=== PATIENT | female | born 1960 | race Caucasian/White ===

== ENCOUNTER 2025-02-04 15:18 | Emergency (ER) | payer MEDICARE, OTHER, SELFPAY ==
--- OUTSIDE RECORDS SUMMARY | 2025-02-04 15:21 | XMS_ITS | Encounter Summary ---
Author Organization [facility] Address [address] [place] [address] Phone Care Team Providers Care Interrelated Special Education Teacher Name Role Phone Charles Evans MD Primary Care Provider [phone] Pedro Soler MD Unavailable Martell Craig MD Unavailable [phone] Dick Godoy MD Unavailable [phone] Doug Glaser MD Unavailable [phone] Brii Babin APRN, EVENT CREW TECHNICIAN Unavailable Kacie Boyle APRN, [facility] Unavailable + [phone] Immanuel Coughlin MD Unavailable [phone] Florentin Diaz MD Primary Care Provider [phone] Reason for Visit * Reason Onset Date Comments Medication Refill 08/31/2020 Encounter Details Date Type Department Care Team (Late st Contact Info) Description 08/31/2020 Refill [facility] - Family Medicine [facility] [address] [place] [id number] Charles Evans MD [address] [address] Medication Refill Social History Tobacco Use Types Packs/Day Years Used Date Smoking Tobacco: Former Cigarettes 0.5 4 0 02/06/2002 - 02/06/2006 Smokeless Tobacco: Never Alcohol Use Standard Drinks/Week Comments No 0 (1 standard drink = 0.6 oz pur e alcohol) PHQ-2 Answer Date Recorded PHQ-2 Score 0 05/22/2020 Education Answer Date Recorded What is the highest level of school you have completed or the highest degree you have received? 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 difficile Rule-Out 03/19/2023 03/20/20232022 10:56 PM CDT COVID - 19 06/23/2023 06/23/2023 07/03/2023 12:1 6 AM CDT COVID - 19 11/20/2023 11/17/2023 11/20/2023 8:03 PM CDT Assessment Noted Time PHQ-9 Depression Total Score: 0 05/22/20 20 2:24 PM CDT documented as of this encounter Care Teams Interrelated Special Education Teacher Relationship Specialty Start Date End Date Charles Evans MD [address] [address] PCP - General Family Medicine 06/24/18 01/12/25 Florentin Diaz MD [address] [place] [address] PCP - General Family Medicine 01/13/25 Pedro Sloer MD #[address] [address] Consulting Physician Colon and Rectal Surgery 04/02/22 Martell Craig MD #2 [place] [address] Consulting Physician Neurology 10/21/22 Dick Godoy MD #2 [place] [address] Consulting Physician Gastroenterology 08/15/22 Doug Glaser MD #[address] [phone] Consulting Physician General Surgery 05/07/24 Brii Babin APRN, EVENT CREW TECHNICIAN #2 [place] [address] Nurse Practitioner Advanced Practice Nurse 04/16/24 Kacie Boyle APRN, REGISTERED OCCUPATIONAL THERAPIST [address]2 [place] [address] Nurse Practitioner Advanced Practice Nurse 06/24/24 Immanuel Coughlin MD [address] [place] [address] Consulting Physician General Surgery 07/08/24 documented as of this encounter
--- OUTSIDE RECORDS SUMMARY | 2025-02-04 15:21 | XMS_ITS | Encounter Summary ---
Author Organization [facility] Address [address] [facility] [place] [address] Phone Care Team Providers Care Manager General Name Role Phone Charles Evans MD Primary Care Provider [phone] Pedro Soler MD Unavailable Martell Craig MD Unavailable [phone] Dick Godoy MD Unavailable [phone] Doug Glaser MD Unavailable [phone] Brii Babin APRN, [employer] Unavailable Kacie Boyle APRN, [facility] Unavailable + [phone] Immanuel Coughlin MD Unavailable [phone] Florentin Diaz MD Primary Care Provider [phone] Reason for Visit * Reason Comments Medication Refill Encounter Details Date Type Department Care Team (Late st Contact Info) Description 01/27/2023 Refill [facility] - Family Medicine [facility] #2 [place] [id number] Charles Evans MD #[address] [address] Medication Refill Social History Tobacco Use Types Packs/Day Years Used Date Smoking Tobacco: Former Cigarettes 0.5 4 0 02/06/2002 - 02/06/2006 Smokeless Tobacco: Never Alcohol Use Standard Drinks/Week Comments No 0 (1 standard drink = 0.6 oz pur e alcohol) PHQ-2 Answer Date Recorded Total Score - Questions 1-9 3 02/07 Education Answer Date Recorded What is the highest level of school you have completed or the highest degree you have received? 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 No / Unsure 01/20/2023 9:51 AM CDT documented as of this encounter Miscellaneous Notes * Telephone Encounter - Anne Marie Escamilla RN - 01/27/2023 5:01 PM CDT Last Rx 04/24/22 Medication failed the protocol, provider to review and approve the medication order if appropriate. Requested Prescriptions Pending Prescriptions Disp Refills Calcium 600+D3 600-20 MG-MCG Tablet [Pharmacy Med Name: CALCIUM+D3 600-800MG TABLETS] 90 Tablet 1 Sig: TAKE 1 TABLET BY MOUTH DAILY Minerals Calcium Supplementation Protocol Passed - 01/27/2023 12:23 PM Passed - Visit with relevant provider in past 12 months or upcoming 90 days Recent Visits Date Type Provider Dept 01/20/23 Office Visit Muriel Hays APRN, PRICE LISTER [facility] 11/11/22 Office Visit Charles Evans MD [facility] [place] 10/11/22 Office Visit Ashlee Rangel, VENTURA [facility] [place] 09/11/22 Office Visit Danial Galvan APRN, CNP [facility] 08/16/22 Office Visit Vidhi Corbett APRN, CNP [facility] 03/04/22 Office Visit Muriel Hays APRN, CNP [facility] Showing recent visits within past 365 days and meeting all other requirements Future Appointments No visits were found meeting these conditions. Showing future appointments within next 90 days and meeting all other requirements Passed - Calcium on record in past 12 months CALCIUM Date Value Ref Range Status 08/16/2022 9.5 8.9 - 10.3 mg/dL Final Passed - Vitamin D on record in past 12 months VITAMIN D, 25 HYDROX Date Value Ref Range Status 08/16/2022 35 >=30 ng/mL Final LORazepam (ATIVAN) 0.5 MG Tablet [Pharmacy Med Name: LORAZEPAM 0.5MG TABLETS] 45 Tablet 0 Sig: TAKE 1 TABLET BY MOUTH EVERY 8 HOURS NEEDED FOR ANXIETY Not Delegated - Benzodiazepines Protocol Failed - 01/27/2023 12:23 PM Failed - This refill cannot be delegated Passed - Visit with relevant provider in past 12 months or upcoming 90 days Recent Visits Date Type Provider Dept 01/20/23 Office Visit Muriel Hays APRN, CNP [facility] 11/11/22 Office Visit Charles [facility] MD [facility] 10/11/22 Office Visit Ashlee Rangel PAC [facility] 09/11/22 Office Visit Danial Galvan APRN, CNP [facility] 08/16/22 Office Visit Vidhi Corbett APRN, CNP [facility] 03/04/22 Office Visit Muriel Hays APRN, CNP [facility] [place] Showing recent visits within past 365 days and meeting all other requirements Future Appointments No visits were found meeting these conditions. Showing future appointments within next 90 days and meeting all other requirements documented in this encounter Plan of Treatment Not on file documented as of this encounter Visit Diagnoses Diagnosis Anxiety Anxiety state, unspecified documented in this encounter Additional Health Concerns Infection Onset Date Last Indicated Resolved Time C. difficile Rule-Out 03/19/2023 03/20/202303/20/ 2023 10:56 PM CDT COVID - 19 06/23/2023 06/23/2023 07/03/2023 12:1 6 AM CDT COVID - 19 11/20/2023 11/17/2023 11/20/2023 8:03 PM CDT Assessment Noted Time PHQ-9 Depression Total Score: 3 03/04/20 22 11:00 AM CDT documented as of this encounter Care Teams Manager General Relationship Specialty Start Date End Date Charles Evans MD #[address] [address] PCP - General Family Medicine 06/24/18 01/12/25 Florentin Diaz MD [address] [place] [address] PCP - General Family Medicine 01/13/25 Pedro Soler MD #[address] [address] Consulting Physician Colon and Rectal Surgery 04/02/22 Martell Craig MD #2 [place] [phone] Consulting Physician Neurology 10/21/22 Dick Godoy MD #2 [place] [address] Consulting Physician Gastroenterology 08/15/22 Doug Glaser MD #[address] [phone] Consulting Physician General Surgery 05/07/24 Brii Babin APRN, PRICE LISTER #2 [place] [address] Nurse Practitioner Advanced Practice Nurse 04/16/24 Kacie Boyle APRN, [facility] [address] [place] [address] Nurse Practitioner Advanced Practice Nurse 06/24/24 Immanuel Coughlin MD [address] [address] Consulting Physician General Surgery 07/08/24 documented as of this encounter
--- OUTSIDE RECORDS SUMMARY | 2025-02-04 15:21 | XMS_ITS | Encounter Summary ---
Author Organization [facility] Address [address] [facility] [place] [address] Phone Care Team Providers Care Executive Coach Name Role Phone Charles Evans MD Primary Care Provider [phone] Pedro Soler MD Unavailable Martell Craig MD Unavailable [phone] Dick Godoy MD Unavailable [phone] Doug Glaser MD Unavailable [phone] Brii Babin APRN, [employer] Unavailable Kacie Boyle APRN, [facility] Unavailable + [phone] Immanuel Coughlin MD Unavailable [phone] Florentin Diaz MD Primary Care Provider [phone] Reason for Visit * Reason Comments Medication Refill Encounter Details Date Type Department Care Team (Late st Contact Info) Description 06/15/2020 Refill [facility] - Family Medicine [facility] #2 [place] [phone] Charles Evans MD #[address] [address] Medication Refill Social History Tobacco Use Types [...] Sex Assigned at Female 08/29/2023 3:02 PM I&C TECHNICIAN Legal Sex Female 8:57 PM CDT Gender Identity Female 08/29/2023 3:02 PM I&C TECHNICIAN Sexual Orientation Straight 08/29/2023 3: 02 PM I&C TECHNICIAN 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 No / Unsure 06/15/2020 9:23 AM CDT documented as of this encounter Miscellaneous Notes * Telephone Encounter - Charles Evans MD - 06/16/2020 9:42 AM CDT Prescription pending signature * Telephone Encounter - Janet Mott RN - 06/16/2020 9:18 AM CDT 6 months ago (12/16/2019) LORazepam (ATIVAN) 0.5 MG Tablet TAKE 1 TABLET BY MOUTH EVERY 8 HOURS NEEDED FOR ANXIETY Dispense: 90 Tab? Refills: 0? Start: 12/16/2019? By: Charles Evans MD ? Encounter documented in this encounter Plan of Treatment Not on file documented as of this encounter Visit Diagnoses Not on filedocumented in this encounter Additional Health Concerns Infection Onset Date Last Indicated Resolved Time COVID - 19 08/24/2021 08/24/2021 09/13/2021 12:1 6 AM I&C TECHNICIAN COVID - 19 Confirmed 08/24/2021 08/24/2021 022 12:16 AM I&C TECHNICIAN COVID - 19 Confirmed 02/20/2022 02/20/2022 022 12:16 AM CDT C. difficile Rule-Out 03/19/2023 03/20/20232022 10:56 PM CDT COVID - 19 06/23/2023 06/23/2023 07/03/2023 12:1 6 AM CDT COVID - 19 11/20/2023 11/17/2023 11/20/2023 8:03 PM CDT Assessment Noted Time PHQ-9 Depression Total Score: 0 05/22/20 20 2:24 PM CDT documented as of this encounter Care Teams Executive Coach Relationship Specialty Start Date End Date Charles Evans MD #[address] [address] PCP - General Family Medicine 06/24/18 01/12/25 Florentin Diaz MD [address] [place] [address] PCP - General Family Medicine 01/13/25 Pedro Soler MD #[address] [address] Consulting Physician Colon and Rectal Surgery 04/02/22 Martell Craig MD #2 [place] [phone] Consulting Physician Neurology 10/21/22 Dick Godoy MD #2 [place] [address] Consulting Physician Gastroenterology 08/15/22 Doug Glaser MD #2 [facility] [place] [facility] [address] [place] [address] Consulting Physician General Surgery 05/07/24 Brii Babin APRN, [facility] #2 [place] [address] Nurse Practitioner Advanced Practice Nurse 04/16/24 Kacie Boyle APRN, [facility] #2 [place] [address] Nurse Practitioner Advanced Practice Nurse 06/24/24 Immanuel Coughlin MD [address] [address] Consulting Physician General Surgery 07/08/24 documented as of this encounter
--- OUTSIDE RECORDS SUMMARY | 2025-02-04 15:21 | XMS_ITS | Encounter Summary ---
Author Organization [facility] Healthcare Address [address] [place] [address] Care Team Providers Care Packager Name Role Phone Florentin Diaz MD Primary Care Provider [phone] Josephine Weiss OT Unavailable [facility] Encounter Details Date Type Department Care Team (Late st Contact Info) Description 02/04/2025 Results Follow-Up [facility] Group Primary Care at [address] [place] [address] Florentin Diaz MD [address] [place] [address] US Breast Left Limited Social History Tobacco Use Types Packs/Day Years Used Date Smoking Tobacco: Former Cigarettes 1 4 2 000 - 2003 Passive Smoke Exposure: Past Smokeless Tobacco: Never Comments:smoked when young AUDIT-C Answer Date Recorded Q1: How often do you have a drink containing alcohol? Never 10/20/2024 Q2: How many drinks containi ng alcohol do you have on a typical day when you are drinking? Patient does not drink Q3: How often do you have si x or more drinks on one occasion? Never 10/20/2024 PHQ-2 Answer Date Recorded PHQ-2 Total Score (If total score is 3 or more points, staff should administer the PHQ-9) 0 10/20/2024 Personal Safety Answer Date Recorded Have you ever been in or are you currently in a harmful physical or emotional relationship or is someone making you feel afraid or unsafe? Denies 08/26/2024 Comments No Sex and Gender Information Value Date Recorded Sex Assigned at Not on file Legal Sex Female 6:19 PM DROPHAMMER OPERATOR Gender Identity Female 05/04/2021 12:55 PM CDT Sexual Orientation Straight 05/04/2021 12 :55 PM CDT documented as of this encounter Plan of Treatment Not on file documented as of this encounter Visit Diagnoses Not on filedocumented in this encounter Care Teams Packager Relationship Specialty Start Date End Date Florentin Diaz MD [address] [place] [address] PCP - General Family Medicine 10/20/24 Josephine Weiss OT Occupational Therapist Occupational Therapy 10/25/24 documented as of this encounter
--- OUTSIDE RECORDS SUMMARY | 2025-02-04 15:21 | XMS_ITS | Encounter Summary ---
Author Organization [facility] Address [address] [place] [address] Care Team Providers Care Concrete Block Maker Name Role Phone Florentin Diaz MD Primary Care Provider [phone] Josephine Weiss OT Unavailable Unavailab le Reason for Referral * Diagnostic Imaging (Routine) - Closed Specialty Diagnoses / Procedures Referred By Contac t Referred To Contact Procedures US Breast Left Limited Tyree Wright MD [address] [id number] Phone: tel: Referral ID Status Reason Start Date Expiration Date Visits Re quested Visits Authorized [id number] Closed 02/04/2025 03/06/2026 1 1 * Diagnostic Imaging (Routine) - Closed Specialty Diagnoses / Procedures Referred By Contac t Referred To Contact Procedures Diagnostic Mammogram Tyree Wright MD [address] [id number] Phone: tel: Referral ID Status Reason Start Date Expiration Date Visits Re quested Visits Authorized [id number] Closed 02/04/2025 03/06/2026 1 1 Encounter Details Date Type Department Care Team (Late st Contact Info) Description 02/04/2025 Orders Only [facility] [place] [address] Tyree Wright MD [address] [place] [id number] Social History Tobacco Use Types Packs/Day Years Used Date Smoking Tobacco: Former Cigarettes 1 4 2 000 - 2004 Passive Smoke Exposure: Past Smokeless Tobacco: Never [...] on file Legal Sex Female 6:19 PM FLORIST SUPPLIES SALESPERSON Gender Identity Female 05/04/2021 12:55 PM CDT Sexual Orientation Straight 05/04/2021 12 :55 PM CDT documented as of this encounter Plan of Treatment Not on file documented as of this encounter Procedures Procedure Name Priority Date/Time Associated Diagnosis Comments US BREAST LEFT LIMITED Schedule Routine, Read Routine (OP Routine) 02/03/2025 10:57 AM CDT DIAGNOSTIC MAMMOGRAM Schedule Routine, Read Routine (OP Routine) 02/03/2025 10:50 AM CDT documented in this encounter Results * US Breast Left Limited (02/03/2025 10:57 AM CDT) Anatomical Region Laterality Modality Breast Mammography Historical Provider MD THOMAS MAMMO PROCEDURES Edit ed Result - Final * Diagnostic Mammogram (02/03/2025 10:50 AM CDT) Anatomical Region Laterality Modality Breast Mammography Historical Provider MD THOMAS MAMMO PROCEDURES Edit ed Result - Final documented in this encounter Visit Diagnoses Not on filedocumented in this encounter Care Teams Concrete Block Maker Relationship Specialty Start Date End Date Florentin Diaz MD [address] [place] [address] PCP - General Family Medicine 10/20/24 Josephine Weiss OT Occupational Therapist Occupational Therapy 10/25/24 documented as of this encounter
--- OUTSIDE RECORDS SUMMARY | 2025-02-04 15:21 | XMS_ITS | Data Portability ---
Author Organization [facility] Address [address] [place] [address] Care Team Providers Care Community Service Representative Name Role Phone EDY HEARTPAGEALPESH Primary Care Provider Assessment No assessment recorded. Plan of Treatment Reminders Order Date Submit Date Provider Last Modified By Organization Details Last Modified Time Details Appointments None recorded. Lab None recorded. Referral None recorded. Procedures None recorded. Surgeries None recorded. Imaging MAMMO, screening, digital, bilateral 2016 017 [facility], [address] [place], [address], 7 13:59:13 XR, ribs, unilateral 2016 [facility]17 [facility] [address] [place], [address], 7 16:37:15 Medication Orders Loratadine -D 10 mg-240 mg tablet,ext ended release 24 hr 2016 017 [facility]558, [address], [place], [place], [id number], 7 12:34:19 [facility] mouthwash 2016 017 [facility], [address], [place], [place], [id number], 7 12:37:29 amoxicilli n 500 mg tablet [address] [facility]10370, [address], [place], [place], [id number], 7 11:58:51 citalopram 40 mg tablet 2016 017 [facility], [address], [place], [place], [id number], 7 12:38:58 amoxicilli n 875 mg tablet [address] [facility] #62482, [address], [place], [place], [id number], 7 11:50:27 Cheratussi n AC 10 mg-100 mg/5 mL oral liquid 2016 017 [facility] #57858, [address], [place], [place], [id number], 7 12:18:07 albuterol sulfate HFA 90 mcg/actuat ion aerosol inhaler 2016 017 [facility] #58586, [address], [place], [place], [id number], 7 12:52:28 naproxen 500 mg tablet 2016 017 [facility], [address], [place], [place], [id number], 7 12:26:58 Cheratussi n AC 10 mg-100 mg/5 mL oral liquid 2016 017 [facility], [address], [place], [place], [id number], 7 12:18:07 Patient TargetsNo targets recorded. Patient Instructions Encounter Date Encounter Id Patient Instructions Last Modified By Organization Details Last Modified Time 01/22/2017 [id number] broken rib: care instructions jdeyto Not available 01/22/2017 14:52:08 02/28/2017 [id number] Increase fluid, steam inhalation. Return to clinic if problem persists or worsen keep f/u nsuthan Not available 02/28/2017 12:51:52 03/17/2017 [id number] learning about healthy weight nsuthan Not available 03/17/2017 12:17:16 continue meds as prescribed healthy diet and exercise f/u in 3 month nsuthan Not available 03/17/2017 12:26:47 07/02/2017 [id number] eating healthy foods: care instructions nsuthan Not available 07/02/2017 12:28:06 continue meds as prescribed healthy diet and exercise f/u in 2 month nsuthan Not available 07/02/2017 13:26:20 07/21/2017 [id number] keep f/u nsuthan Not available 07/21 12:27:53 Reason for Referral None Reported. Results Created Date Observation Date Name Description Value Unit Range Abnormal Flag Note LastModifiedBy Organization Detail LastModifiedTime 01/23/20 17 01/22/2017 XR, ribs, unila teral No observ ation record ed. [email or web address] [address] [place], [address], 01/23/2017 14:41:17 04/15/20 17 04/15/2017 MAMMO , scree gretchen, digit al, bilat eral No observ ation record ed. nsuthan [address] [place], [address], 04/15/2017 14:51:48 08/13/20 17 08/13/2017 gastr ic empty ing study (PROC ) No observ ation record ed. nsuthan Not Available 2016 16:34:50 06/16/20 18 06/16/2018 US, abdom en No observ ation record ed. nsuthan Not Available 2017 10:50:15 Result Notes None recorded. Problems Name Problem SNOMED Code Status Onset Date Resolution Date Notes Provider Name and Address Organization Details Recorded Time Mixed anxiety and depressive disorder 924580503 Active 2016 Jasvir Heart MD Attn: Cherelle mckeon,[address] [facility], [place], [address], [facility] 7 10:24:11 Chronic constipation 509112684 Active 2016 seeing GI-Dr.K kaylee Heart MD Attn: Cherelle mckeon,[address] [facility], [place], [address], [facility] 7 10:20:58 Elevated blood-pressur e reading without diagnosis of hypertension 057755850 Active 2016 Jasvir Heart MD Attn: Cherelle mckeon,[address] [facility], [place], [address], [facility] 7 12:27:36 Problem Notes None recorded. Procedures Surgical History Date Name Laterality Status Provider Name and Address Organization Details Recorded Time 08/08/20 17 EGD/Endoscopy completed Anne Marie Ugarte RN [facility] 08/14/2017 16:47:56 04/15/20 17 Most Recent Mammogram completed Jasvir Heart MD Attn: Accounting,[address] [facility], [place], [address], [facility] 04/15/2017 14:51:41 04/11/20 17 Colonoscopy completed Jasvir Heart MD Attn: Accounting,[address] [facility], [place], [address], [facility] 04/11/2017 10:47:51 10/09/19 16 Total hysterectomy completed Carolina Rogel [facility] 10/23/2016 10:16:31 09/08/19 15 Joint Replacement completed [facility] - [facility] 10/23 10:15:35 09/08/18 99 Tubal Ligation completed [facility] 10/23/19 17 10:16:15 [facility] 10/23[facility]2016 10:15:59 [facility] 10:16:54 Other completed Carolina Rogel [place] - [facility] 017 10:17:49 Imaging Results None recorded. Procedure Notes None recorded. Medical Equipment None Reported. Allergies Allergen ID Allergen Name Allergen Category Reaction Reaction Severity Criticality Documentation Date Start Date Code Code System Note Provider Name and Address Organization Details Recorded Time 47724 neomycin medicatio n rash Not available Not available 10/23/2016 7299 [employer] Carolina cheng, [place] - [facility] 7 10:06:57 Medications Name Sig Start Date Stop Date Status Note LastModified by Organization Details LastModified Time citalopra m 40 mg tablet TAKE 1 TABLET BY MOUTH EVERY DAY active Not Available Not Available No t Available Lidocaine Viscous 2 % mucosal solution active Not Available Not Available Not Available ondansetr on HCl 8 mg tablet Take 1 tablet every 8 hours by oral route as needed. active Not Available Not Available No t Available famotidin e 40 mg tablet Take 1 tablet twice a day by oral route. 07/02 completed Not Available Not Available Not Available Zithromax Z-Yonas 250 mg tablet TAKE 2 TABLETS (500 MG) BY ORAL ROUTE ONCE DAILY FOR 1 DAY THEN 1 TABLET (250 MG) BY ORAL ROUTE ONCE DAILY FOR 4 DAYS 07/21 completed Not Available Not Available Not Available Motrin IB 200 mg tablet Take 3 tablets every 6 hours by oral route. 02/28 completed hold while on naproxen BID Not Available Not Available Not Available omeprazol e 40 mg capsule,d elayed release GI active Not Available Not Available Not Available amoxicill in 500 mg tablet Take 1 tablet 3 times a day by oral route for 7 days. 07/21 completed Not Available Not Available Not Available amoxicill in 875 mg tablet Take 1 tablet every 12 hours by oral route for 7 days. 03/17 completed Not Available Not Available Not Available citalopra m 20 mg tablet TAKE 1 TABLET BY MOUTH DAILY active Not Available Not Available No t Available DOK 100 mg capsule 07/02 completed Not Available Not Available Not Available ranitidin e 150 mg tablet GI active Not Available Not Available Not Available omeprazol e 20 mg capsule,d elayed release 07/02 completed Not Available Not Available Not Available polyethyl jostin glycol 3350 17 gram/dose oral powder 03/17 completed Not Available Not Available Not Available naproxen 500 mg tablet Take 1 tablet twice a day by oral route. 03/17 completed Not Available Not Available Not Available Ventolin HFA 90 mcg/actua tion aerosol inhaler Inhale 2 puffs 3 times a day by inhalati on route as needed. active Not Available Not Available No t Available OraMagicR x mouthwash Benadryl / Maalox / Xylocain e at equal proporti ons -Take 10ml bid by mucous route. 2016 active Not Available Not Available Not Avai lable Loratadin e-D 10 mg-240 mg tablet,ex tended release 24 hr Take 1 tablet every day by oral route for 10 days. 2016 active Not Available Not Available Not Avai lable bupropion HCl XL 300 mg 24 hr tablet, extended release TAKE 1 TABLET BY MOUTH EVERY DAY active Not Available Not Available No t Available Linzess 145 mcg capsule Take 1 capsule every day by oral route. 01/13 completed Not Available Not Available Not Available Linzess 290 mcg capsule TAKE 1 CAPSULE BY MOUTH EVERY DAY 07/02 completed Not Available Not Available Not Available Virtussin AC 10 mg-100 mg/5 mL oral liquid Take 10 mL twice a day by oral route as needed for 5 days. 03/17 completed Not Available Not Available Not Available Flonase Allergy Relief 50 mcg/actua tion nasal spray,[employer] [place] 1 spray every day by intranas al route. active Not Available Not Available No t Available Trulance 3 mg tablet Take 1 tablet every day by oral route. active GI Not Available Not Available No t Available Vitals Date Recorded Body height Body weight Body mass index (BMI) Heart rate Respiratory rate Body temperature Oxygen saturation Oxygen saturation in Arterial blood by Pulse oximetry Systolic blood pressure Diastolic blood pressure Provider Name and Address Organization Details Last Updated DateTime 7 157.48 cm 78215.0 8 g 26.9 kg/m2 76 /min 12 /min 98.4 [degF] 96 % 96 % 142 mm[Hg] 80 mm[Hg] Lore Jenkins MA [place] - [facility] 7 14:26:55 Date Recorded Body height Body mass index (BMI) Body weight Heart rate Respiratory rate Body temperature Oxygen saturation Oxygen saturation in Arterial blood by Pulse oximetry Systolic blood pressure Diastolic blood pressure Provider Name and Address Organization Details Last Updated DateTime 7 157.48 cm 27.5 kg/m2 93882.5 7 g 75 /min 12 /min 98.3 [degF] 98 % 98 % 136 mm[Hg] 88 mm[Hg] Nicolle Esa TD [facility] 7 12:29:54 Date Recorded Body height Body mass index (BMI) Body weight Heart rate Respiratory rate Body temperature Oxygen saturation Oxygen saturation in Arterial blood by Pulse oximetry Systolic blood pressure Diastolic blood pressure Provider Name and Address Organization Details Last Updated DateTime 7 157.48 cm 27.8 kg/m2 82838.6 8 g 76 /min 12 /min 98 [degF] 97 % 97 % 130 mm[Hg] 88 mm[Hg] [facility] 7 11:49:55 Date Recorded Body height Body mass index (BMI) Body weight Heart rate Respiratory rate Body temperature Oxygen saturation Oxygen saturation in Arterial blood by Pulse oximetry Systolic blood pressure Diastolic blood pressure Provider Name and Address Organization Details Last Updated DateTime 7 157.48 cm 29 kg/m2 14407.0 3 g 73 /min 12 /min 98.1 [degF] 98 % 98 % 144 mm[Hg] 86 mm[Hg] [facility] 7 12:05:18 Date Recorded Body height Body mass index (BMI) Body weight Heart rate Respiratory rate Body temperature Oxygen saturation Oxygen saturation in Arterial blood by Pulse oximetry Systolic blood pressure Diastolic blood pressure Provider Name and Address Organization Details Last Updated DateTime 7 157.48 cm 28.5 kg/m2 26482.6 9 g 90 /min 12 /min 98.8 [degF] 99 % 99 % 142 mm[Hg] 92 mm[Hg] [facility] 7 12:00:59 Social History Question Answer Notes LastModified by Organizat ion Details LastModified Time Tobacco Smoking Status Former Smoker Quit- [facility] 10/23/2016 10:13:27 What Is Your Level Of Caffeine Consumption? Moderate Information not available 10/23/2016 How Much Tobacco Do You Chew? None Information not available 10/23/2016 What Type Of Diet Are You Following? SPECIFIC Information not available 03/17/2017 Which Illicit Or Recreational Drugs Have You Used? Denies Information not available 10/23/2016 Marital Status Informatio n not available 10/23/2016 What Was The Date Of Your Most Recent Tobacco Screening? 07/21/2017 Information not available 04/01/2019 Performs Monthly Self-breast Exam? Yes Information not available 10/23/2016 At What Age Did You Start Smoking Tobacco? 42 Information not available 10/23/2016 General Stress Level Low Information not available 10/23/2016 How Many Years Have You Smoked Tobacco? 3 Information not available 10/23/2016 Sex: Unknown Functional Status Question Answer Note LastModified by Organizat ion Details LastModified Time What is your level of alcohol consumption? 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 Occasional Walking Information not available 03/17/2017 Mental Status None recorded. Family History Relationship Description Onset Age of this Age Resolved Age Notes LastModified by Organization Details LastModified Time Father Asthma Not available 10:11:57 Sister Asthma Not available 10:11:57 Sister Depressive disorder Not available 2016 10:12:05 Mother Diabetes mellitus Not available 2016 10:12:12 Mother Hypertensive disorder Not available 2016 10:12:21 Mother Malignant neoplasm of lung Not available 2016 10:12:42 Mother Chronic obstructive pulmonary disease Not available 2016 10:13:04 Medical History Condition Response Depression Y Acid Reflux (GERD) Y Gynecological History Statement/Question Response Most Recent Mammogram 04/15/2017 Obstetrics History GPAL:G 0 P 0 0 0 0 Immunizations Vaccine Type Date Status Note Provider Nam e and Address Organization Details Recorded Time Influenza, split virus, quadrivalent, preservative 7 completed Not Available [facility] 09/25/2019 02:34:24 Tdap 3 completed [place] Rogel [place], [place] - [facility] 10/23/2016 10:11:03 Past Encounters Encounter ID Performer Location Encounter Start Date Encounter Closed Date Diagnosis/Indication Diagnosis SNOMED-CT Code Diagnosis ICD10 Code Diagnosis Note [id number] [facility] [address] [place] [address] 10/23/2016 09:45:03 10/23/2016 17:04:51 Mixed anxiety and depressive disorder 580119523 F41.8 stable on Celexa and Wellbutrin Chronic constipation 236 358419 K59.00 pt tried several meds without much improvemen tTrial of Linzess 145 mg daily -sample given Abdominal pain 74867529 R10.9 pt went to ER and xray few wks ago and pt was told she has constipati onpt had colonoscop y 07/23 -polyp removed pt never had CT abdomen Adult heal th examination 587300951 Z00.01 include more vegetables and fruits in diet [id number] [facility] [address] [place] [address] 01/13/2017 09:58:25 01/13/2017 13:19:39 Mixed anxiety and depressive disorder 003397183 F41.8 stable on Celexa and Wellbutrin Acute sinusitis 98127258 J01.90 Increase fluid continue flonase nasal spray Chronic constipation 236 004399 K59.00 pt is seeing GI repeat colonoscop y is pending [id number] [facility] [address] [place] [address] 01/22/2017 14:18:47 01/22/2017 15:19:49 Rib pain 029925883 R07.81 no overt fracture palpable, lung sounds are clear. Get x-ray of ribs and change motrin to scheduled naproxen. use ice instead of heat as she has mild swelling still at area of injury. Further recs when xray results available. Cough 11660619 R05 with recent URI, completed abx on Friday. Take cheratussi n when not driving to minimize cough and help w/ sleep due to rib pain [id number] MD Mahsa Gonzalez (Adult Med) [address] [place] [address] 02/28/2017 12:09:09 02/28/2017 15:29:06 Acute bronchitis 71220012 J20.9 [id number] MD Mahsa Gonzalez (Adult Med) [address] [place] [address] 03/17/2017 11:42:36 03/17/2017 13:49:16 Mixed anxiety and depressive disorder 870085436 F41.8 stable on Celexa and Wellbutrin Chronic constipation 236 567998 K59.00 pt is seeing GI Overweight 936010951 E66 .3 Screening mammography 24 453927 Z12.31 pt to see Gang [employer] [id number] MD Mahsa Gonzalez (Adult Med) [address] [place] [address] 07/02/2017 11:57:12 07/03/2017 18:10:56 Administration of influenza vaccine 02351090 Z23 Mixed anxi ety and depressive disorder 721452409 F41.8 fair controlInc rease Celexa 40 mg dailyconti sophia Wellbutrin Elevated blood-pressure reading without diagnosis of hypertension 450873901 R03.0 low salt diet / exercisewi ll reassess Acute sinusitis 01555725 J01.90 increase fluid [id number] MD Mahsa Gonzalez (Adult Med) [address] [place] [address] 07/21/2017 11:38:05 07/22/2017 16:09:08 Upper respiratory infection 13988411 J06.9 Elevated blood-pressure reading without diagnosis of hypertension 673052719 R03.0 low salt diet / exercisewi ll reassess Health Concerns Section Related Observation LastModified by Organization Detai ls LastModified Time None Recorded Concern Status LastModified by Organization Details LastModified Time None Recorded Advance Directives Directive None Recorded Payers Encounter Date Sequence Insurance Name Policy Number Policy Lawson Covered Member ID Lawson Member ID Guarantor Name 01/22/2017 1 [facility] (MEDICAID HMO) [id number] Mallory Alda [id number] Mallory Lizama 02/28/2017 1 [facility] (MEDICAID HMO) [id number] Mallory Alda [id number] Mallory Alda 03/17/2017 1 [facility] (MEDICAID HMO) [id number] Mallory Alda [id number] Mallory Alda 07/02/2017 1 [facility] (MEDICAID HMO) [id number] Mallory Alda [id number] Mallory Alda 07/21/2017 1 [facility] (MEDICAID HMO) [id number] Mallory Alda [id number] Mallory Alda Notes Date Note Type Note Provider Name and Address Organization Details Recorded Time 7 text/htm l right sided rib pain started Friday, was leaning on tub on right side, slipped and lost her footing, suddenly had all of her weight on edge of tub, sharp pain to anterior & lateral rib underneath right breast. Motrin & heat not really helping. Painful to take deep breaths. No problems moving her right arm, but pain w/ reaching, twisting, turning torso.Not sleeping well due to pain w/ movement or laying on that side. Denies any difficulty breathing except for pain, no shortness of breath, no hemoptysis. Getting over URI and still having drainage and cough which is very painful. Fransisca Juares PA-C Attn: Accounting,[address] [place], [address], [facility] 01/22/2017 14:55:00 7 text/htm l Upper Respiratory SymptomsReported bypatient.Location:head; chest Quality:congested;dry cough Duration:symptoms lasting over 2 weeks Context:non-smoker Associated Symptoms:no sputum production; no fever;wheezing;sore throat(better) Jasvir Heart MD Attn: Accounting,[address] [place], [address], [facility] 02/28/2017 12:57:49 7 text/htm l Anxiety/DepressionReported bypatient.Quality:symptoms improved Severity:denies suicidal ideations; does not interfere with activities of daily living Duration:stablizing Onset/Timing:gradual Context:no major life stressors Modifying Factors:medications as directed Associated Symptoms:denies homicidal ideations; mood good; no crying spells; sleeping wellConstipationReported bypatient.Quality:improving; small amount Duration:present 5 or more years Contextno history of IBS;history of chronic idiopathic constipation;history of colonoscopy(07/23) Alleviating Factors:fiber supplement; miralax; stool softener; high fiber diet Associated Symptoms:abdominal pain;nausea;crampingNotes:pt is seeing GI . Jasvir Heart MD Attn: [facility],[address] [place] [address], [address], [facility] 03/17/2017 12:27:27 7 text/htm l Anxiety/DepressionReported bypatient.Quality:symptoms improved (fair control with med) Severity:denies suicidal ideations Onset/Timing:gradual Context:no major life stressors Modifying Factors:medications as directed Associated Symptoms:denies homicidal ideations; no crying spells; sleeping well;depressionSinusitis/All ergyReported bypatient.Location:maxillary Associated Symptoms:headache cheek Onset/Timing:gradual onset; progressively worse over last 3days Quality:hoarseness;congested Severity:moderate Risk Factors:no history of smoking;increased stress Jasvir Heart MD Attn: [facility],[address] [place] [address], [address], [facility] 07/02/2017 13:27:22 7 text/htm l Sinusitis/AllergyReported bypatient.Location:frontal Associated Symptoms:headache forehead;sore throat Onset/Timing:gradual onset; progressively worse over last 2weeks Quality:hoarseness;congested Severity:moderate Context:recent upper respiratory infection Risk Factors:no history of smoking;increased stress Jasvir Heart MD Attn: [facility],[address] [place] [address], [address], [facility] 07/21/2017 15:00:33 OBGyn Episode No OBEpisode recorded.
--- OUTSIDE RECORDS SUMMARY | 2025-02-04 15:21 | XMS_ITS | Clinical Summary ---
Author Organization [facility] Address [address] [place] [address] Care Team Providers Care Felt Dyeing Machine Tender Name Role Phone Florentin Diaz MD Primary Care Provider [phone] Josephine Weiss OT Unavailable Unavailab le Allergies Active Allergy Reactions Criticality Noted Date Comments Neomycin Hives,Rash High 11/12/2018 Blisters Tea Tree Oil Other (See comments) Low 04/09/2019 Blisters Medications buPROPion XL (WELLBUTRIN XL) 300 mg 24 hr tabletIndications: Anxiety with Depression Take 1 tablet (300 mg total) by mouth every morning RESTART on 09/09 when able to take pills whole 5 Active citalopram (CeleXA) 40 mg tabletIndications: Generalized Anxiety Disorder Take 1 tablet (40 mg total) by mouth every morning Crush pills until 09/09 when able to take pills whole 4 Active SUMAtriptan (IMITREX) 25 mg tabletIndications: Migraine Take 1 tablet (25 mg total) by mouth once as needed for migraine Crush pills until 09/09 when able to take pills whole May repeat dose once in 2 hours if no relief. Do not exceed 2 doses in 24 hours. 4 Active topiramate (TOPAMAX) 25 mg capsuleIndications :Migraine Prevention Take 1 capsule (25 mg total) by mouth 2 (two) times a day Open capsule and take in applesauce until 09/09 when able to take pills whole 4 Active valACYclovir (VALTREX) 500 mg tabletIndications: herpes 2 Take 1 tablet (500 mg total) by mouth every morning Crush pills until 09/09 when able to take pills whole 4 Active ondansetron ODT (ZOFRAN-ODT) 4 mg disintegrating tabletIndications: Prevention of Post-Operative Nausea and Vomiting Take 1 tablet (4 mg total) by mouth every 8 (eight) hours as needed for nausea or vomiting 20 tablet 2 4 Active alendronate (FOSAMAX) 70 mg tabletIndications: Age-related osteoporosis without current pathological fracture Take 1 tablet (70 mg total) by mouth every 7 days Take in the morning with a full glass of water, on an empty stomach, and do not take anything else by mouth or lie down for the next 30 min. 12 tablet 3 5 026 Active Active Problems Problem Noted Date Diagnosed Date Osteoporosis 11/26/2024 Migraine with aura and witho ut status migrainosus, not intractable 10/20/2024 Assessment & Plan (10/20/2024 10:19 PM MOTORS ASSEMBLER): Stable, well controlled; no major issues Continue sumatriptan 25 mg p.r.n., topiramate 25 mg b.i.d. Hiatal hernia 08/26/2024 Vitreous hemorrhage of right eye 08/22/2024 Hiatal hernia with GERD 08/11/2024 Primary osteoarthritis of fi rst carpometacarpal joint of left hand 07/04/2024 De Quervain's tenosynovitis 07/04/2024 Gastric polyp 06/04/2024 COVID-19 08/27/2021 s/p C3-7 ACDF on 02/01/[address] Barbosa 021 Body mass index (BMI) of 25.0-25.9 in adult 11/07 Overview (12/08/2020): Last Assessment & Plan: Condition: stable Educated patient on normal BMI range of 18.5 to 24.9 Advised to monitor nutrition to not exceed caloric needs, or as indicated by PCP in order to maintain a healthy weight and BMI. Advised to engage in aerobic physical activity, if indicated to be safe by PCP, to assist with maintaining a healthy weight and BMI. Advised to follow up with PCP to address nutrition as needed to assist with reaching or maintaining a healthy weight and BMI. Follow up in: one year Examination 12/03/2019 Overview (12/08/2020): Patient consented to telehealth exam. Last Assessment & Plan: Condition: stable Follow up in: one year It was very nice to meet you today. I also recommend washing your hands frequently to prevent the spread of disease such as, but not limited to Influenza. Remember to wash your hands with soap and water and scrub your hands for at least 20 seconds at a time. A way to do this is by singing your A, B, Cs one time or the Happy Birthday song two times which is approximately 20 seconds. Former smoker, stopped smoking many years ago Overview (12/08/2020): Last Assessment & Plan: No longer smokes Memory difficulty 12/03/2019 Overview (12/08/2020): Patient reports new memory problems and that PCP is aware. Is supposed to follow up with neurology, but the appointment keeps getting pushed back. Last Assessment & Plan: Condition: new. Follow up with neurology Urge incontinence of urine 12/03/2019 Overview (12/08/2020): Last Assessment & Plan: Condition: stable Follow up as directed by your primary care provider or specialist LSC (lichen simplex chronicus) 04/10/2019 Neoplasm of uncertain behavior of skin 9 Dermatitis, unspecified 04/10/2019 Overview (12/08/2020): Last Assessment & Plan: Condition: Using a steroid cream. Reports that it sometimes helps, Follow up in: I recommend calling the freight rate specialist as we discussed, to set up an appointment. 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 Overview (12/08/2020): Followed by Royce Castelan MD-Plastic surgery Last Assessment & Plan: Follow up as directed by your primary care provider or specialist Elevated blood-pressure read ing without diagnosis of hypertension 07/02/2017 Chronic constipation 10/29/2016 Overview (12/08/2020): Last Assessment & Plan: Condition: stable Follow up in: three months DNS (deviated nasal septum) 04/11/2016 Overview (12/08/2020): Last Assessment & Plan: Condition: stable Follow up as directed by your primary care provider or specialist Gastroesophageal reflux disease 04/11/2016 Overview (12/08/2020): Last Assessment & Plan: Condition: stable Reviewed use of antacid medication and/or diet modifications of decreasing caffeine, spicy foods, chocolate, and avoiding alcohol, tobacco, NSAIDs, and reducing citrus acids. Follow up in: three months Assessment & Plan (10/20/2024 10:19 PM MOTORS ASSEMBLER): Stable, well controlled; status post fundoplication; improvement in symptoms and doing much better Continue ondansetron p.r.n. for nausea to reduce risk of vomiting Headache 04/11/2016 Hyperfunctional dysphonia 04/11/2016 Hypertrophy of inferior nasal turbinate 04/11/20 16 Malocclusion due to mouth breathing 04/11/2016 Pachyderma of larynx 04/11/2016 PNAR (perennial non-allergic rhinitis) 6 Referred otalgia 04/11/2016 Tinnitus 04/11/2016 Colon polyps 08/07/2015 History of colon polyps 08/07/2015 Overview (12/08/2020): Last Assessment & Plan: Condition: Most recent colonoscopy shows no colon polyps. Recommend to follow up with regular colon cancer screenings as recommended by your PCP or specialist. Internal hemorrhoids 08/07/2015 Ovarian cyst 08/02/2015 Anxiety 07/19/2015 Assessment & Plan (10/20/2024 10:19 PM MOTORS ASSEMBLER): Well controlled; no significant anxiety at this time; good control with current medications and no significant side effects Continue citalopram 40 mg daily, bupropion 300 mg daily Depression 07/19/2015 Hypothyroidism 07/19/2015 Assessment & Plan (10/20/2024 10:18 PM MOTORS ASSEMBLER): Stable, well controlled; no major changes to energy levels or activity Will continue to monitor with regular thyroid checks Moderate episode of recurrent major depressive d isorder 07/19/2015 Overview (12/08/2020): Last Assessment & Plan: Condition: improving Last mental health visit Patient reports that she was scheduled for a visit last week, but had to reschedule due to coronavirus. Advised to keep follow up appointment. Take medications as ordered by Provider; notify Provider if you cannot take medications as ordered or are having difficulties or side-effects from medications (do not stop medications without notifying Provider). If symptoms worsen or do not improve/stabilize, notify health care provider right away. If thoughts of harming self or others notify health care provider immediately &/or seek urgent/emergent care including calling Suicide Hotline ( ) or 085. Follow up in as directed with Psychologist, Counselor and PCP RA (rheumatoid arthritis) 07/19/2015 Overview (12/08/2020): Patient reports that she has no symptoms at this time Last Assessment & Plan: Follow up as directed by your primary care provider or specialist Encounters Date Type Department Care Team Description 02/04/2025 Telephone [facility] [address] [address] Florentin Diaz MD Symptom Based Call 02/04/2025 Results Follow-Up [facility] Primary Care at [address] [place] [address] Florentin Diaz MD US Breast Left Limited 02/04/2025 Orders Only [facility] [address] [address] Tyree Wright MD 01/18/2025 Telephone [facility] [address] [address] Florentin Diaz MD Additional Services Or Orders 01/03/2025 Telephone [facility] [address] [place] [phone] Randolph Victoria PA 12/10/2024 Orders Only [facility] [address] [place] [phone] Randolph Victoria PA Primary osteoarthritis of first carpometacarpal joint of left hand (Primary Dx); Orthopedic aftercare 12/09/2024 1:15 PM CDT - 12/09/2024 11:59 PM CDT Hospital Encounter [facility] [address] [place] [address] [address], [place] [phone] Discharge Disposition: Discharge to home or self care 12/09/2024 1:00 PM CDT Office Visit [facility] [address] [place] [address] [address] [place] [phone] Randolph Victoria PA Primary osteoarthritis of first carpometacarpal joint of left hand (Primary Dx); Orthopedic aftercare 11/26/2024 Results Follow-Up [facility] Primary Care at [address] [place] [address] Danay Alvarado NP Dexa Axial Skeleton Bone Density 1 or 2 Site 11/18/2024 2:15 PM CDT - 11/18/2024 11:59 PM CDT Hospital Encounter [facility] [address] [place] [address] Osteoporosis screening; Post-menopause Discharge Disposition: Discharge to home or self care 11/12/2024 1:45 PM MOTORS ASSEMBLER Therapy [facility] Occupational Therapy [address] [place] [address] Josephine Weiss OT Primary osteoarthritis of first carpometacarpal joint of left hand (Primary Dx); De Quervain's tenosynovitis; 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 from Last 3 Months Immunizations Immunization Administration Dates Next Due Influenza, Quadrivalent, Split, Intramuscular Influenza, Quadrivalent, Spl it, Preservative Free, Intramuscular 08/07/2015,08/07/2015 Influenza, Trivalent, IM (MDV) 05/25/2013 Pneumococcal Polysaccharide PPV23 08/08/2008 Td, adsorbed 10/29/2022 Tdap 05/20/2013 Surgical History Surgery Date Site/Laterality Comments NASAL SEPTUM SURGERY WRIST SURGERY X 4 ECTOPIC X 2 HYSTERECTOMY 09/08/2015 - 09/07/2016 N/A TONSILLECTOMY FRACTURE SURGERY CHOLECYSTECTOMY 06/08/2024 - 07/08/2024 N/A THUMB SURGERY 07/20/2024 Left Left thumb arthroplasty, interposition, intercarpal, carpometacarpal joint and dequervains disease release ESOPHAGOGASTRODUODENOSCOPY 06/04/2024 CERVICAL FUSION 02/01/2021 C3-4, C4-5, C5-6, C6-7 ANTERIOR CERVICAL DISCECTOMY FUSION TUBAL LIGATION LAPAROSCOPIC STEPHANIE FUNDOPLICATION 2023 - 09/07/2024 N/A Medical History Medical History Date Comments GERD (gastroesophageal reflux disease) Depression Anxiety Arthritis PONV (postoperative nausea and vomiting) Headache Motion sickness Family History Medical History Relation Name Comments Asthma Father Hypertension Father COPD Mother LS Cancer Mother LS Diabetes Mother LS Hypertension Mother LS Anesthesia problems Neg Hx Relation Name Status Comments Father Alive Mother LS Social History Tobacco Use Types Packs/Day Years Used Date Smoking Tobacco: Former Cigarettes 1 4 2 000 - 2004 Passive Smoke Exposure: Past Smokeless Tobacco: Never Tobacco Cessation:Counseling Given: Not Answered Comments:smoked when young AUDIT-C Answer Date Recorded [...] on file Legal Sex Female 6:19 PM MOTORS ASSEMBLER Gender Identity Female 05/04/2021 12:55 PM CDT Sexual Orientation Straight 05/04/2021 12 :55 PM CDT Obstetrics History Last Filed Vital Signs Vital Sign Reading Time Taken Comments Blood Pressure 124/77 12/09/2024 1:02 PM CDT Pulse 71 12/09/2024 1:02 PM CDT Temperature 36.7 C (98 F) 10/20/2024 10:52 AM MOTORS ASSEMBLER Respiratory Rate 18 10/20/2024 10:52 AM MOTORS ASSEMBLER Oxygen Saturation 99% 10/20/2024 10:52 AM MOTORS ASSEMBLER Inhaled Oxygen Concentration - - Weight 62.6 kg (138 lb) 12/09/2024 1:02 PM CDT Height 157.5 cm (5' 2) 12/09/2024 1:02 PM CDT Body Mass Index 25.24 12/09/2024 1:02 PM CDT Plan of Treatment Health Maintenance Due Date Last Done Comments Colon Cancer Screening-Colonoscopy 1960 Zoster Vaccine (1 of 2) 2009 Pneumococcal vaccine 65+ (2 of 2 - PCV) 08/08/2009 08/08/2008 Well Visit 65+ 2024 Influenza Vaccine (Season Ended) 2025 07/02/2017, 08/07/2015, 08/07/2015, Additional history exists Depression Screening 10/20/2025 10/20/2024 Fall Risk Assessment 10/20/2025 10/20/2024, 08/27/20 Breast Cancer Screening-Mammogram 02/03/2026 02/03/2025, 04/25/2022, 04/25/2022, Additional history exists Osteoporosis Screening-Bone Density Scan 11/18/2026 11/18/2024 DTaP/Tdap/Td Vaccine (3 - Td or Tdap) 10/29/2032 10/29/2022, 05/20/2013 Hepatitis B Screening Completed 10/20/2024 Hepatitis C Screening Completed 10/20/2024 Medical Devices Implanted Type Area Securities Sales Associate Device Identifier Shelf Expiration Date Model / Serial / Lot [place] Spine [id number] G2 Cage Spinal Buxton 7 D L12mm X W14mm X H7mm Sterile Latex Free Cervical Interbody System - [id number] Implanted:Qty: 1 on 02/01/2021 by Herminio Barbosa MD at [facility] N/A: Spine Cervical Virginie Spine [id number] 02/20/2025 [id number] / / [id number] Medtronic Spinal Graft [id number] Putty Filler 1cc Bone Void Demineralized Bone Matrix - [id number] - [id number] Implanted:Qty: 1 on 02/01/2021 by Herminio Barbosa MD at [facility] N/A: Spine Cervical Medtronic Inc 12/25/2023 [id number] / [id number] / Virginie Spine [id number] G2 Cage Spinal Buxton 7 D L12mm X W14mm X H6mm Sterile Latex Free Cervical Interbody System - [id number] Implanted:Qty: 1 on 02/01/2021 by Herminio Barbosa MD at [facility] N/A: Spine Cervical Liv[place] Spine 04/18/202507/2025 [id number] / / [id number] Virginie Spine [id number] G2 Cage Spinal Buxton 7 D L12mm X W14mm X H6mm Sterile Latex Free Cervical Interbody System - [id number] Implanted:Qty: 1 on 02/01/2021 by Herminio Barbosa MD at [facility] N/A: Spine Cervical [place] Spine [id number] 12/20/2024 [id number] / / [id number] K2m Llc [id number] Od4 Mm L12 Mm Self Tapping Spine Screw Bone Dark Blue - [id number] Implanted:Qty: 1 on 02/01/2021 by Herminio Barbosa MD at [facility] N/A: Spine Cervical Liv[place] Spine [id number] C / / [id number] Llc [id number] Od4 Mm L14 Mm Self Tap Spine Screw Bone Magenta - [id number] Implanted:Qty: 9 on 02/01/2021 by Herminio Barbosa MD at [facility] N/A: Spine Cervical Virginie Spine [id number] C / / [place] Spine [id number] 68mm 4 Level Translational Spine Cervical Plate Bone - [id number] Implanted:Qty: 1 on 02/01/2021 by Herminio Barbosa MD at [facility] N/A: Spine Cervical Virginie Spine [id number] / / Virginie Spine [id number] G2 Cage Spinal Buxton 7 D L12mm X W14mm X H6mm Sterile Latex Free Cervical Interbody System - [id number] Implanted:Qty: 1 on 02/01/2021 by Herminio Barbosa MD at [facility] N/A: Spine Cervical [place] Spine [id number] 09/05/2024 [id number] / / [id number] Arthrex Inc Dx Swivelock Sl 3.5mm 8.5mm Fork Eyelet Castleton Suture Sterile Ar-8978p - [id number] Implanted:Qty: 1 on 07/20/2024 by Tommy Cuba MD at [facility] Left: Wrist Arthrex Inc 11/05/2028 AR-8978P / / [id number] Arthrex Inc Dx Swivelock Sl 3.5mm 8.5mm Fork Eyelet Castleton Suture Sterile Ar-8978p - [id number] Implanted:Qty: 1 on 07/20/2024 by Tommy Cuba MD at [facility] Left: Wrist Arthrex Inc 02/05/2029 AR-8978P / / [id number] Arthrex Inc Arthrex Dx Fibertak Needle Castleton Suture Sterile Latex Free Ar-8990st - [id number] Implanted:Qty: 1 on 07/20/2024 by Tommy Cuba MD at [facility] Left: Wrist Arthrex Inc 10/08/2028 AR-8990ST / / [id number] Procedures Procedure Name Priority Date/Time Associated Diagnosis Comments US BREAST LEFT LIMITED Schedule Routine, Read Routine (OP Routine) 02/03/2025 10:57 AM CDT DIAGNOSTIC MAMMOGRAM Schedule Routine, Read Routine (OP Routine) 02/03/2025 10:50 AM CDT XR HAND LEFT 3 OR MORE VIEWS Schedule Routine, Read Routine (OP Routine) 12/09/2024 1:37 PM CDT Orthopedic aftercare DEXA AXIAL SKELETON BONE DENSITY 1 OR MORE SITES Schedule Routine, Read Routine (OP Routine) 11/18/2024 2:33 PM CDT Osteoporosis screening Post-menopause HEPATITIS C ANTIBODY Routine 10/20/2024 12:05 PM MOTORS ASSEMBLER Encounter for hepatitis C screening test for low risk patient from Last 3 Months or Most Recently Relevant to Health Maintenance Results * US Breast Left Limited (02/03/2025 10:57 AM CDT) Anatomical Region Laterality Modality Breast Mammography us Historical Provider MD THOMAS MAMMO PROCEDURES Edit ed Result - Final * Diagnostic Mammogram (02/03/2025 10:50 AM CDT) Anatomical Region Laterality Modality Breast Mammography Historical Provider MD THOMAS MAMMO PROCEDURES Edit ed Result - Final * XR Hand Left 3 or More Views (12/09/2024 1:37 PM CDT) Anatomical Region Laterality Modality Upper Extremities, Hand Left Digital Radiography Narrative 12/09/2024 2:29 PM CDT Views of the left hand were reviewed interpreted today compared to prior views. No evidence of fracture. Changes related to previous CMC arthroplasty noted with excision of the trapezium noted. Inferior subluxation of the thumb noted compared to prior views. Randolph THOMAS XR PROCEDURES Shannen l Result * Dexa Axial Skeleton Bone Density 1 or 2 Site (11/18/2024 2:33 PM CDT) Anatomical Region Laterality Modality Body N/A Other 11/20/2024 9:07 AM CDT Narrative 11/20/2024 9:07 AM CDT EXAM DESCRIPTION: DEXA AXIAL SKELETON BONE DENSITY 1 OR MORE SITES REASON FOR STUDY: 64 y/o year old F with given history of: osteoporosis screening Screening Securities Sales Associate/Model: [employer] (S/N 74447) Facility LSC value of 0.022 for the AP spine, 0.027 for the femur, and 0.023 for the forearm. CLINICAL INFORMATION: Current height: 62 inches Maximum height: 62 inches Weight: 138 pounds Risk factors: Postmenopausal COMPARISON: None available FINDINGS: AP LUMBAR SPINE L1-L4: Total BMD is 0.848 g/cm2 T-score is by 12.8 LEFT HIP: Total BMD is 0.691 g/cm2 T-score is -2.1 Femoral neck BMD is 0.571 g/cm2 T-score is -2.5 FRAX: FRAX not reported due to T-scores of hip, femoral neck and/or spine being at or below -2.5 (Osteoporosis). IMPRESSION: Osteoporosis. REFERENCE: Bone mineral density: T-Score: Normal (T-score above or = -1.0) Low bone mass (T-score between -1.0 and -2.5) replaces the previously used term osteopenia Osteoporosis (T-score = or below -2.5) Z-Score: Within the expected range for age (Z-score above -2.0) Below the expected range for age (Z-score is -2.0 or below) Please see below follow up recommendations. Medical evaluation for secondary causes of low bone mineral density may be appropriate. FRAX is a World Health Organization validated fracture risk assessment tool that calculates a person's 10 year probability of a major osteoporosis related fracture and hip fracture. According to the National Osteoporosis Foundation guidelines, postmenopausal women and men age 50 or older with low bone mass and a 10 year probability of a major osteoporosis related fracture = or greater than 20% or a 10 year probability of a hip fracture = or greater than 3% should be considered for pharmacological treatment for the prevention of osteoporosis. For further information, including treatment recommendations, please refer to the 2019 ISCD Official Positions (http://www.iscd.org) and the NOF's Clinician's Guide to Prevention and Treatment of Osteoporosis (http://www.nof.org/professionals/clinical-guidelines) THIS IS AN ELECTRONICALLY VERIFIED FINAL REPORT 11/20/2024 9:07 AM - Electronically signed by Charles Garibay M.D. MF: DILAN Report ID: [id number] Reading Location: [id number] Procedure Note Charles Garibay MD - 11/20/2024 EXAM DESCRIPTION: DEXA AXIAL SKELETON BONE DENSITY 1 OR MORE SITES REASON FOR STUDY: 64 y/o year old F with given history of:osteoporosis screening Screening Securities Sales Associate/Model: [employer] SL (S/N [id number]) Facility LSC value of 0.022 for the AP spine, 0.027 for the femur, and0.023 for the forearm. CLINICAL INFORMATION: Current height: 62 inches Maximum height: 62 inches Weight: 138 pounds Risk factors: Postmenopausal COMPARISON: None available FINDINGS: AP LUMBAR SPINE L1-L4: Total BMD is 0.848 g/cm2 T-score is by 12.8 LEFT HIP: Total BMD is 0.691 g/cm2 T-score is -2.1 Femoral neck BMD is 0.571 g/cm2 T-score is -2.5 FRAX: FRAX not reported due to T-scores of hip, femoral neck and/or spine beingat or below -2.5 (Osteoporosis). IMPRESSION: Osteoporosis. REFERENCE: Bone mineral density: T-Score: Normal (T-score above or = -1.0) Low bone mass (T-score between -1.0 and -2.5) replaces thepreviously used term osteopenia Osteoporosis (T-score = or below -2.5) Z-Score: Within the expected range for age (Z-score above -2.0) Below the expected range for age (Z-score is -2.0 or below) Please see below follow up recommendations. Medical evaluation forsecondary causes of low bone mineral density may be appropriate. FRAX is a World Health Organization validated fracture risk assessmenttool that calculates a person's 10 year probability of a major osteoporosisrelated fracture and hip fracture. According to the National OsteoporosisFoundation guidelines, postmenopausal women and men age 50 or older with low bonemass and a 10 year probability of a major osteoporosis related fracture = or greater than 20% or a 10 year probability of a hip fracture = or greaterthan 3% should be considered for pharmacological treatment for the preventionof osteoporosis. For further information, including treatment recommendations, please referto the 2019 ISCD Official Positions (http://www.iscd.org) and the NOF's Clinician's Guide to Prevention and Treatment of Osteoporosis (http://www.nof.org/professionals/clinical-guidelines) THIS IS AN ELECTRONICALLY VERIFIED FINAL REPORT 11/20/2024 9:07 AM - Electronically signed by Charles Garibay M.D. MF: DILAN Report ID: [id number] Reading Location: [place] [address] Florentin Diaz MD [facility] DXA PROCEDURES Final Result * Hepatitis C antibody Blood (10/20/2024 12:05 PM MOTORS ASSEMBLER) [facility] Hep C Ab Nonreactive Nonreactive Comment: Interpretive Data Nonreactive: Antibodies to HCV not detected. Does NOT exclude the possibility of recent exposure to HCV. Equivocal: Equivocal for HCV antibodies. Supplemental molecular testing will be automatically performed to determine infection status in accordance with current CDC screening recommendations. Reactive: Positive for HCV antibodies. This may represent current or past HCV infection. Supplemental molecular testing will be automatically performed to determine current infection status in accordance with current CDC screening recommendations. Interpretive data was last revised on 2019. Testing performed by: [facility], [address] [place] [address], [place] [address] Blood 10/20/2024 12:0 5 PM MOTORS ASSEMBLER 10/20/2024 5:29 PM MOTORS ASSEMBLER us Florentin Diaz MD LAB MICROBIOLOGY - GENERA L ORDERABLES Final Result [facility] ([facility]) [facility] Department [place] [address] from Last 3 Months or Most Recently Relevant to Health Maintenance Insurance MEDICARE [facility] [place] MEDICARE [employer] [place] Advance Directives For more information, please contact: [phone] Documents on File Type Date Recorded Patient Pickler Helper Expl anation ADVANCE DIRECTIVE 08/27/2024 9:25 AM MORRIS NG WILL ADVANCE DIRECTIVE 08/26/2024 2:03 PM MORRIS NG WILL ADVANCE DIRECTIVE 08/26/2024 1:56 PM ALEX R OF GED PREPARATION TEACHER-MEDICAL ADVANCE DIRECTIVE 08/26/2024 1:56 PM ALEX R OF GED PREPARATION TEACHER-MEDICAL * Full Code (Latest Code Status on File) Date Activated Date Inactivated Comments 08/26/2024 1:24 PM 08/27/2024 9:05 PM * Full Code Date Activated Date Inactivated Comments 08/26/2024 1:24 PM 08/26/2024 1:24 PM * Full Code Date Activated Date Inactivated Comments 02/01/2021 9:43 PM 02/02/2021 6:18 PM Care Teams Felt Dyeing Machine Tender Relationship Specialty Start Date End Date Florentin iDaz MD [address] [place] [address] PCP - General Family Medicine 10/20/24 Josephine Weiss OT Occupational Therapist Occupational Therapy 10/25/24
--- OUTSIDE RECORDS SUMMARY | 2025-02-04 15:21 | XMS_ITS ---
Author Organization [facility] Address [address] [facility], [address] [address] Phone Care Team Providers Care Junior Account Manager Name Role Phone Pedro Soler MD Unavailable Martell Craig MD Unavailable [phone] Dick Godoy MD Unavailable [phone] Doug Glaser MD Unavailable [phone] [facility] APRN, CERT OCCUPATIONAL THERAPY ASST Unavailable Kacie Boyle APRN, [facility] Unavailable + [phone] Immanuel Coughlin MD Unavailable [phone] Florentin Diaz MD Primary Care Provider [phone] [facility] Status:Closed (Closed) Start date:10/06/2024 Enrollment date:10/06/2024 End date:02/03/2025 Close reason:Patient graduated Related social drivers of health:Tobacco Use, Physical Activity, Housing Stability Continued Care and Services Coordination
--- OUTSIDE RECORDS SUMMARY | 2025-02-04 15:21 | XMS_ITS | Encounter Summary ---
Author Organization [facility] Address [address] [facility] [place] [address] Phone Care Team Providers Care Interior Painter Name Role Phone Charles Evans MD Primary Care Provider [phone] Pedro Soler MD Unavailable Martell Craig MD Unavailable [phone] Dick Godoy MD Unavailable [phone] Doug Glaser MD Unavailable [phone] Brii Babin APRN, AREA DEVELOPMENT MANAGER Unavailable Kacie Boyle APRN, [facility] Unavailable + [phone] Immanuel Coughlin MD Unavailable [phone] Florentin Diaz MD Primary Care Provider [phone] Reason for Visit * Reason Comments Medication Refill Encounter Details Date Type Department Care Team (Late st Contact Info) Description 08/01/2021 Refill [facility] [address] [place] [id number] Charles Evans MD [address] [address] Medication Refill Social History Tobacco Use Types Packs/Day Years Used Date Smoking Tobacco: Former Cigarettes 0.5 4 0 02/06/2002 - 02/06/2006 Smokeless Tobacco: Never Alcohol Use Standard Drinks/Week Comments No 0 (1 standard drink = 0.6 oz pur e alcohol) PHQ-2 Answer Date Recorded Total Score - Questions 1-9 3 04/2021 Education Answer Date Recorded What is the highest level of school you have completed or the highest degree you have received? 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 No / Unsure 07/25/2021 11:08 AM OCTAVE BOARD ASSEMBLER documented as of this encounter Miscellaneous Notes * Telephone Encounter - Charles Evans MD - 08/03/2021 3:51 PM CST Prescription pending signature VE BOARD ASSEMBLER * Telephone Encounter - Anne Marie Escamilla RN - 08/03/2021 1:48 PM CST Last Rx 03/22/21 Medication failed the protocol, provider to review and approve the medication order if appropriate. Requested Prescriptions Pending Prescriptions Disp Refills LORazepam (ATIVAN) 0.5 MG Tablet [Pharmacy Med Name: LORAZEPAM 0.5MG TABLETS] 90 Tablet Sig: TAKE 1 TABLET BY MOUTH EVERY 8 HOURS NEEDED FOR ANXIETY healthfinch Not Delegated - Anesthesia: Anesthetics & Sedatives Failed - 08/03/2021 1:47 PM Failed - This refill cannot be delegated Passed - Valid encounter within last 6 months Past Office Visits Recent Outpatient Visits 1 month ago RUQ abdominal pain [facility] - Charles Canales MD 1 month ago [facility] C[facility] 6 months ago Preop cardiovascular exam [facility] Charles Canales MD 6 months ago Acute non-recurrent maxillary sinusitis [facility] Sc[facility] APRN, CNP 9 months ago Encounter for gynecological examination (general) (routine) with abnormal findings [facility] APRN, CNP Upcoming Appointments Future Appointments In 4 days Shelly Whaley, HAT AND CAP PARTS CUTTER HAND [facility] In 1 week Anum Pack, PT [facility] In 2 weeks Dick Godoy MD [facility] In 2 weeks Anum Pack, PT [facility] In 3 weeks Anum Pack, PT [facility] In 1 month Anum Pack, PT [facility] In 1 month Anum Pack, PT [facility] In 2 months Charles Evans MD [facility] MACHINE BILLER - Recent and Past Visits Recent Visits Date Type Provider Dept 06/19/21 [facility] Office Visit Danial Galvan APRN, CNP [facility] 01/19/21 Office Visit [facility] 01/10/21 Telemedicine Muriel Hays APRN, CNP [facility] 10/09/20 Office Visit Muriel Hays APRN, CNP [facility] 10/02/20 Telemedicine AngellaMuriel wilkins APRN, BEK[facility] 09/15/20 Telemedicine AngellaMuriel wilkins APRN, BEK[facility] 06/23/20 Office Visit AngellaMuriel wilkins APRN, BEK[facility] 05/22/20 Telemedicine AngellaMuriel wilkins APRN, BEK[facility] 05/12/20 Office Visit Muriel Hays APRN, [facility] Showing recent visits within past 460 days with a meds authorizing provider and meeting all other requirements Future Appointments Date Type Provider Dept 10/11/21 Appointment [facility] MD [facility] Showing future appointments within next 90 days with a meds authorizing provider and meeting all other requirements VE BOARD ASSEMBLER documented in this encounter Plan of Treatment Not on file documented as of this encounter Visit Diagnoses Diagnosis Anxiety Anxiety state, unspecified documented in this encounter Additional Health Concerns Infection Onset Date Last Indicated Resolved Time COVID - 19 08/24/2021 08/24/2021 09/13/2021 12:1 6 AM OCTAVE BOARD ASSEMBLER COVID - 19 Confirmed 08/24/2021 08/24/2021 022 12:16 AM OCTAVE BOARD ASSEMBLER COVID - 19 Confirmed 02/20/2022 02/20/2022 022 12:16 AM CDT C. difficile Rule-Out 03/19/2023 03/20/20232022 10:56 PM CDT COVID - 19 06/23/2023 06/23/2023 07/03/2023 12:1 6 AM CDT COVID - 19 11/20/2023 11/17/2023 11/20/2023 8:03 PM CDT Assessment Noted Time PHQ-9 Depression Total Score: 3 09/15/19 21 2:42 PM OCTAVE BOARD ASSEMBLER documented as of this encounter Care Teams Interior Painter Relationship Specialty Start Date End Date Charles Evans MD [address] [address] PCP - General Family Medicine 06/24/18 01/12/25 Florentin Diaz MD [address] [place] [address] PCP - General Family Medicine 01/13/25 Pedro Soler MD #[address] [address] Consulting Physician Colon and Rectal Surgery 04/02/22 Martell Craig MD #2 [place] [phone] Consulting Physician Neurology 10/21/22 Dick Godoy MD #2 [place] [address] Consulting Physician Gastroenterology 08/15/22 Doug Glaser MD #[address] [phone] Consulting Physician General Surgery 05/07/24 Brii Babin APRN, AREA DEVELOPMENT MANAGER [address] [place] [address] Nurse Practitioner Advanced Practice Nurse 04/16/24 Kacie Boyle APRN, SCALE EXPERT [address] [place] [address] Nurse Practitioner Advanced Practice Nurse 06/24/24 Immanuel Coughlin MD [address] [address] Consulting Physician General Surgery 07/08/24 documented as of this encounter
--- OUTSIDE RECORDS SUMMARY | 2025-02-04 15:21 | XMS_ITS | Encounter Summary ---
Author Organization [facility] Address [address] [facility] [address] Phone Care Team Providers Care Ski Patroller Name Role Phone Charles Evans MD Primary Care Provider [phone] Pedro Soler MD Unavailable Martell Craig MD Unavailable [phone] Dick Godoy MD Unavailable [phone] Doug Glaser MD Unavailable [phone] Brii Babin APRN, PAYLOADER MACHINE OPERATOR Unavailable Kacie Boyle APRN, [facility] Unavailable + [phone] Immanuel Coughlin MD Unavailable [phone] Florentin Diaz MD Primary Care Provider [phone] Reason for Visit * Reason Comments Medication Refill Encounter Details Date Type Department Care Team (Late st Contact Info) Description 05/24/2021 Refill [facility] #2 [place] [phone] Charles Evans MD #[address] [address] Medication Refill Social History Tobacco Use Types [...] Sex Assigned at Female 08/29/2023 3:02 PM ROLL THREADER OPERATOR Legal Sex Female 8:57 PM CDT Gender Identity Female 08/29/2023 3:02 PM ROLL THREADER OPERATOR Sexual Orientation Straight 08/29/2023 3: 02 PM ROLL THREADER OPERATOR 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 No / Unsure 05/24/2021 11:08 AM CDT documented as of this encounter Miscellaneous Notes * Telephone Encounter - Charles Evans MD - 05/24/2021 1:44 PM CDT Prescription approved. Please call in * Telephone Encounter - Marguerite Maria RN - 05/24/2021 1:27 PM CDT Medication failed the protocol, provider to review and approve the medication order if appropriate. Requested Prescriptions Pending Prescriptions Disp Refills citalopram (CeleXA) 40 MG Tablet [Pharmacy Med Name: CITALOPRAM 40MG TABLETS] 90 Tablet 2 Sig: TAKE 1 TABLET BY MOUTH DAILY Citalopram (Celexa) (6 Month Refill Only) Protocol Failed - 05/24/2021 1:27 PM Failed - Has an encounter in the past 6 months with a depression, anxiety, adjustment disorder, OCD, or PTSD visit diagnosis Passed - Citalopram dose is less than or equal to 40mg / day Passed - Visit with relevant provider in past 6 months or upcoming 90 days Recent Visits Date Type Provider Dept 01/19/21 Office Visit Charles Evans MD [facility] 01/10/21 Telemedicine Muriel Hays APN, PAYLOADER MACHINE OPERATOR [facility] Showing recent visits within past 182 days and meeting all other requirements Future Appointments No visits were found meeting these conditions. Showing future appointments within next 90 days and meeting all other requirements Passed - Patient has established therapy with Citalopram for at least 6 months documented in this encounter Plan of Treatment Not on file documented as of this encounter Visit Diagnoses Diagnosis Depression, unspecified depression type documented in this encounter Additional Health Concerns Infection Onset Date Last Indicated Resolved Time COVID - 19 08/24/2021 08/24/2021 09/13/2021 12:1 6 AM ROLL THREADER OPERATOR COVID - 19 Confirmed 08/24/2021 08/24/2021 022 12:16 AM ROLL THREADER OPERATOR COVID - 19 Confirmed 02/20/2022 02/20/2022 022 12:16 AM CDT C. difficile Rule-Out 03/19/2023 03/20/20232022 10:56 PM CDT COVID - 19 06/23/2023 06/23/2023 07/03/2023 12:1 6 AM CDT COVID - 19 11/20/2023 11/17/2023 11/20/2023 8:03 PM CDT Assessment Noted Time PHQ-9 Depression Total Score: 3 09/15/19 21 2:42 PM ROLL THREADER OPERATOR documented as of this encounter Care Teams Ski Patroller Relationship Specialty Start Date End Date Charles Evans MD [address] [address] PCP - General Family Medicine 06/24/18 01/12/25 Florentin Diaz MD [address] [place] [address] PCP - General Family Medicine 01/13/25 Pedro Soler MD #[address] [address] Consulting Physician Colon and Rectal Surgery 04/02/22 Martell Craig MD #2 [place] [phone] Consulting Physician Neurology 10/21/22 Dick Godoy MD #2 [place] [address] Consulting Physician Gastroenterology 08/15/22 Doug Glaser MD #[address] [address] Consulting Physician General Surgery 05/07/24 Brii Babin APRN, PAYLOADER MACHINE OPERATOR #[address] [place] [address] Nurse Practitioner Advanced Practice Nurse 04/16/24 Kacie Boyle APRN, COMPOSER TEACHING ARTIST [address] [place] [address] Nurse Practitioner Advanced Practice Nurse 06/24/24 Immanuel Coughlin MD [address] [address] Consulting Physician General Surgery 07/08/24 documented as of this encounter
--- OUTSIDE RECORDS SUMMARY | 2025-02-04 15:21 | XMS_ITS | Encounter Summary ---
Author Organization [facility] Address [address] [facility] [place] [address] Phone Care Team Providers Care Pilot Submersible Name Role Phone Charles Evans MD Primary Care Provider [phone] Pedro Soler MD Unavailable Martell Craig MD Unavailable [phone] Dick Godoy MD Unavailable [phone] Doug Glaser MD Unavailable [phone] Brii Babin APRN, MEAT MARKET MANAGER Unavailable Kacie Boyle APRN, [facility] Unavailable + [phone] Immanuel Coughlin MD Unavailable [phone] Florentin Diaz MD Primary Care Provider [phone] Encounter Details Date Type Department Care Team (Latest Contact Info) Description 07/03/2020 [facility] [address] [place] [address] Kirill Locke MD [address] [place] [address] Pre-op testing (Primary Dx) Social History Tobacco Use Types Packs/Day Years [...] Sex Assigned at Female 08/29/2023 3:02 PM [employer] Legal Sex Female 8:57 PM CDT Gender Identity Female 08/29/2023 3:02 PM [employer] Sexual Orientation Straight 08/29/2023 3: 02 PM [employer] 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 No / Unsure 07/06/2020 11:08 AM CDT documented as of this encounter Plan of Treatment Not on file documented as of this encounter Results * SARS-COV-2 BY MOLECULAR (07/14/2020 12:55 PM [employer]) SARSCOV2 NOT DETECTED (Referenc e Range for this test is Not Detected) [facility] THERMOFISHER FAST DX 07/15/2020 6:50 PM [employer] [facility] Swab NASOPHARYNGEAL STRUCTURE / Unknown Non-Phlebotomy Collection / Unknown 07/14/2020 12:55 PM [employer] 07/14/2020 12:55 PM [employer] Narrative [facility] - 07/15/2020 6:50 PM [employer] Authorized Fact Sheets about this test for providers and patients are available at: https://www.fda.gov/medical-devices/iedxtvrdc-pxxnaddwpj-jcolpfn-devices/emergen cy-us e-authorizations us Kirill Locke MD MICROBIOLOGY - GENERAL ORDERA BLES Final Result [facility] [address] [place] [address], documented in this encounter Visit Diagnoses Diagnosis Pre-op testing- Primary Preoperative examination, unspecified documented in this encounter Additional Health Concerns Infection Onset Date Last Indicated Resolved Time COVID - 19 08/24/2021 08/24/2021 09/13/2021 12:1 6 AM [employer] COVID - 19 Confirmed 08/24/2021 08/24/2021 022 12:16 AM [employer] COVID - 19 Confirmed 02/20/2022 02/20/2022 022 12:16 AM CDT C. difficile Rule-Out 03/19/2023 03/20/20232022 10:56 PM CDT COVID - 19 06/23/2023 06/23/2023 07/03/2023 12:1 6 AM CDT COVID - 19 11/20/2023 11/17/2023 11/20/2023 8:03 PM CDT Assessment Noted Time PHQ-9 Depression Total Score: 0 05/22/20 20 2:24 PM CDT documented as of this encounter Care Teams Pilot Submersible Relationship Specialty Start Date End Date Charles Evans MD #[address] [address] PCP - General Family Medicine 06/24/18 01/12/25 Florentin Diaz MD [address] [place] [address] PCP - General Family Medicine 01/13/25 Pedro Soler MD #[address] [address] Consulting Physician Colon and Rectal Surgery 04/02/22 Martell Craig MD #2 [place] [phone] Consulting Physician Neurology 10/21/22 Dick Godoy MD #2 [place] [address] Consulting Physician Gastroenterology 08/15/22 Doug Glaser MD #2 [facility] [address] [place] [address] Consulting Physician General Surgery 05/07/24 Brii Babin APRN, MEAT MARKET MANAGER [address]2 [place] [address] Nurse Practitioner Advanced Practice Nurse 04/16/24 Kacie Boyle APRN, VENETIAN BLIND MAKER [address] [place] [address] Nurse Practitioner Advanced Practice Nurse 06/24/24 Immanuel Coughlin MD [address] [facility] [address] [place] [address] Consulting Physician General Surgery 07/08/24 documented as of this encounter
--- OUTSIDE RECORDS SUMMARY | 2025-02-04 15:21 | XMS_ITS | Encounter Summary ---
Author Organization [facility] Address [address] [place] [address] Care Team Providers Care Operation Research Analyst Name Role Phone Florentin Diaz MD Primary Care Provider [phone] Josephine Weiss OT Unavailable Unavail le Reason for Visit * Reason Onset Date Comments Symptom Based Call 02/04/2025 Encounter Details Date Type Department Care Team (Late st Contact Info) Description 02/04/2025 Telephone [facility] [address] [place] [address] Florentin Diaz MD [address] [place] [address] Symptom Based Call Social History Tobacco Use Types Packs/Day Years [...] on file Legal Sex Female 6:19 PM MEDICAL RECORD LIBRARIANS TEACHER Gender Identity Female 05/04/2021 12:55 PM CDT Sexual Orientation Straight 05/04/2021 12 :55 PM CDT documented as of this encounter Miscellaneous Notes * Telephone Encounter - Izzy Bailey MA - 02/04/2025 1:05 PM CDT See patient message encounter. * Telephone Encounter - Nela Fry - 02/04/2025 12:19 PM CDT Symptom Based Call Chief Complaint(s): abscess on gum, sore mouth Duration: 2 days What type of symptom(s) is the patient experiencing? Non-Emergent. Is this a new or reoccurring symptom(s)? new What have you tried to help your symptom(s)? Oral gel Why was appointment not scheduled? Patient seeking care without an appointment; appointment was offered by [facility]. Additional Comments: Pt asking for antibiotic. Pt will send a photo through [employer]. Does message need to be routed? Yes-Action Needed documented in this encounter Plan of Treatment Not on file documented as of this encounter Visit Diagnoses Not on filedocumented in this encounter Care Teams Operation Research Analyst Relationship Specialty Start Date End Date [place] [address] PCP - General Family Medicine 10/20/24 Josephine Weiss OT Occupational Therapist Occupational Therapy 10/25/24 documented as of this encounter
--- OUTSIDE RECORDS SUMMARY | 2025-02-04 15:21 | XMS_ITS | Encounter Summary ---
Author Organization [facility] Address [address] [facility] [address] Phone Care Team Providers Care Cutter Helper Name Role Phone Charles Evans MD Primary Care Provider [phone] Pedro Soler MD Unavailable Martell Craig MD Unavailable [phone] Dick Godoy MD Unavailable [phone] Doug Glaser MD Unavailable [phone] Brii Babin APRN, SEO SPECIALIST Unavailable Kacie Boyle APRN, [facility] Unavailable + [phone] Immanuel Coughlin MD Unavailable [phone] Florentin Diaz MD Primary Care Provider [phone] Reason for Visit * Reason Onset Date Comments Results 05/16/2020 Encounter Details Date Type Department Care Team (Late st Contact Info) Description 05/16/2020 Telephone [facility] [address] [place] [address] Charles Evans MD #[address] [address] Results Social History Tobacco Use Types Packs/Day Years Used Date Smoking Tobacco: Former Cigarettes 0.5 4 0 02/06/2002 - 02/06/2006 Smokeless Tobacco: Never Alcohol Use Standard Drinks/Week Comments No 0 (1 standard drink = 0.6 oz pur e alcohol) PHQ-2 Answer Date Recorded PHQ-2 Score 1 05/12/2020 Education Answer Date Recorded What is the highest level of school you have completed or the highest degree you have received? 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 No / Unsure 05/12/2020 3:13 PM CDT documented as of this encounter Miscellaneous Notes * Telephone Encounter - Shanell Roger RN - 05/16/2020 9:04 AM CDT Patient states symptoms are improving , patient started feeling better yesterday. Patient given results. Patient verbalized understanding. * Telephone Encounter - Shanell Roger RN - 05/16/2020 9:01 AM CDT ----- Message from Muriel Hays APN, SEO SPECIALIST sent at 05/11/2020 11:58 AM CDT ----- Patient is negative for COVID, however due to her symptoms I would like her to complete a 10 day quarantine due to her symptoms. Are her symptoms improving? documented in this encounter Plan of Treatment Not on file documented as of this encounter Visit Diagnoses Not on filedocumented in this encounter Additional Health Concerns Infection Onset Date Last Indicated Resolved Time COVID - 19 08/24/2021 08/24/2021 09/13/2021 12:1 6 AM ODD TICKET CLERK COVID - 19 Confirmed 08/24/2021 08/24/2021 022 12:16 AM ODD TICKET CLERK COVID - 19 Confirmed 02/20/2022 02/20/2022 022 12:16 AM CDT C. difficile Rule-Out 03/19/2023 03/20/20232022 10:56 PM CDT COVID - 19 06/23/2023 06/23/2023 07/03/2023 12:1 6 AM CDT COVID - 19 11/20/2023 11/17/2023 11/20/2023 8:03 PM CDT Assessment Noted Time PHQ-9 Depression Total Score: 1 05/12/20 20 3:00 PM CDT documented as of this encounter Care Teams Cutter Helper Relationship Specialty Start Date End Date Charles Evans MD #[address] [address] PCP - General Family Medicine 06/24/18 01/12/25 Florentin Diaz MD [address] [place] [address] PCP - General Family Medicine 01/13/25 Pedro Soler MD #[address] [address] Consulting Physician Colon and Rectal Surgery 04/02/22 Martlel Craig MD #2 [place] [phone] Consulting Physician Neurology 10/21/22 Dick Godoy MD #2 [place] [address] Consulting Physician Gastroenterology 08/15/22 Doug Glaser MD #2 [facility] [address] [place] [address] Consulting Physician General Surgery 05/07/24 Brii Babin APRN, [facility] #2 [place] [address] Nurse Practitioner Advanced Practice Nurse 04/16/24 Kacie Boyle APRN, [facility] #[address] [place] [address] Nurse Practitioner Advanced Practice Nurse 06/24/24 Immanuel Coughlin MD [address] [address] Consulting Physician General Surgery 07/08/24 documented as of this encounter
--- OUTSIDE RECORDS SUMMARY | 2025-02-04 15:21 | XMS_ITS | Encounter Summary ---
Author Organization [facility] Address [address] [place] [address] Phone Care Team Providers Care Tin Plater Name Role Phone Charles Evans MD Primary Care Provider [phone] Pedro Soler MD Unavailable Martell Craig MD Unavailable [phone] Dick Godoy MD Unavailable [phone] Doug Glaser MD Unavailable [phone] Brii Babin APRN, KETTLE COORDINATOR Unavailable Kacie Boyle APRN, [facility] Unavailable + [phone] Immanuel Coughlin MD Unavailable [phone] Florentin Diaz MD Primary Care Provider [phone] Reason for Visit * Reason Comments Medication Refill Encounter Details Date Type Department Care Team (Late st Contact Info) Description 03/21/2021 Refill [facility] - Family Medicine [facility] #2 [place] [phone] Charles Evans MD #[address] [address] Medication Refill Social History Tobacco Use Types [...] Sex Assigned at Female 08/29/2023 3:02 PM SLEEPING CAR CONDUCTOR Legal Sex Female 8:57 PM CDT Gender Identity Female 08/29/2023 3:02 PM SLEEPING CAR CONDUCTOR Sexual Orientation Straight 08/29/2023 3: 02 PM SLEEPING CAR CONDUCTOR 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 Requested Prescriptions Pending Prescriptions Disp Refills LORazepam (ATIVAN) 0.5 MG Tablet [Pharmacy Med Name: LORAZEPAM 0.5MG TABLETS] 90 Tablet Sig: Take 1 Tablet by mouth every 8 hours as needed for Anxiety. [facility]fin[facility] Not Delegated - Anesthesia: Anesthetics & Sedatives Failed - 03/22/2021 10:53 AM Failed - This refill cannot be delegated Passed - Valid encounter within last 6 months Past Office Visits Recent Outpatient Visits 2 months ago Preop cardiovascular exam [facility] - Family Medicine - Charles Canales MD 2 months ago Acute non-recurrent maxillary sinusitis [facility] - Family Medicine - [place] Strohbeck, Muriel, BOX SEALING MACHINE CATCHER, KETTLE COORDINATOR 5 months ago Encounter for gynecological examination (general) (routine) with abnormal findings [facility] - Jose [place], Muriel, BOX SEALING MACHINE CATCHER, KETTLE COORDINATOR 5 months ago Chronic cough [facility] - [place] Strohbeck, Muriel, BOX SEALING MACHINE CATCHER, KETTLE COORDINATOR 6 months ago Chronic cough [facility] [place] Strohbeck, Muriel, BOX SEALING MACHINE CATCHER, KETTLE COORDINATOR Upcoming Appointments Future Appointments In 6 months Charles Evans MD [facility] CURB MACHINE OPERATOR - Recent and Past Visits Recent Visits Date Type Provider Dept 01/19/21 Office Visit Charles Evans MD [facility] [place] 01/10/21 Telemedicine StrohbeckAnisaMuriel BOX SEALING MACHINE CATCHER, KETTLE COORDINATOR [facility] 10/09/20 Office Visit Strohbeck Muriel BOX SEALING MACHINE CATCHER, KETTLE COORDINATOR [facility] 10/02/20 Telemedicine Strohbeck, Muriel, BOX SEALING MACHINE CATCHER, KETTLE COORDINATOR [facility] 09/15/20 Telemedicine Strohbeck, Muriel, BOX SEALING MACHINE CATCHER, KETTLE COORDINATOR [facility] 06/23/20 Office Visit Strohbeck Muriel, BOX SEALING MACHINE CATCHER, KETTLE COORDINATOR [facility] 05/22/20 Telemedicine Strohbeck, Muriel, BOX SEALING MACHINE CATCHER, KETTLE COORDINATOR [facility] 05/12/20 Office Visit Strohbeck Muriel, BOX SEALING MACHINE CATCHER, KETTLE COORDINATOR [facility] 05/09/20 Telemedicine Strohbeck Muriel, BOX SEALING MACHINE CATCHER, KETTLE COORDINATOR [facility] [place] 01/12/20 Telemedicine Charles Evans MD [facility] Showing recent visits within past 460 days with a meds authorizing provider and meeting all other requirements Future Appointments No visits were found meeting these conditions. Showing future appointments within next 90 days with a meds authorizing provider and meeting all other requirements documented in this encounter Plan of Treatment Not on file documented as of this encounter Visit Diagnoses Diagnosis Anxiety Anxiety state, unspecified documented in this encounter Additional Health Concerns Infection Onset Date Last Indicated Resolved Time COVID - 19 08/24/2021 08/24/2021 09/13/2021 12:1 6 AM SLEEPING CAR CONDUCTOR COVID - 19 Confirmed 08/24/2021 08/24/2021 022 12:16 AM SLEEPING CAR CONDUCTOR COVID - 19 Confirmed 02/20/2022 02/20/2022 022 12:16 AM CDT C. difficile Rule-Out 03/19/2023 03/20/20232022 10:56 PM CDT COVID - 19 06/23/2023 06/23/2023 07/03/2023 12:1 6 AM CDT COVID - 19 11/20/2023 11/17/2023 11/20/2023 8:03 PM CDT Assessment Noted Time PHQ-9 Depression Total Score: 3 09/15/19 21 2:42 PM SLEEPING CAR CONDUCTOR documented as of this encounter Care Teams Tin Plater Relationship Specialty Start Date End Date Charles Evans MD #[address] [address] PCP - General Family Medicine 06/24/18 01/12/25 Florentin Diaz MD [address] [place] [address] PCP - General Family Medicine 01/13/25 Pedro Soler MD #[address] [address] Consulting Physician Colon and Rectal Surgery 04/02/22 Martell Craig MD #2 [place] [phone] Consulting Physician Neurology 10/21/22 Dick Godoy MD #2 [place] [address] Consulting Physician Gastroenterology 08/15/22 Doug Glaser MD #2 [facility] [address] [place] [address] Consulting Physician General Surgery 05/07/24 Brii Babin APRN, KETTLE COORDINATOR #2 [place] [address] Nurse Practitioner Advanced Practice Nurse 04/16/24 Kacie Boyle APRN, SANITATION TRUCK DRIVER #[address] [place] [address] Nurse Practitioner Advanced Practice Nurse 06/24/24 Immanuel Coughlin MD 2 [facility] [address] [place] [address] Consulting Physician General Surgery 07/08/24 documented as of this encounter
--- OUTSIDE RECORDS SUMMARY | 2025-02-04 15:21 | XMS_ITS | Encounter Summary ---
Author Organization [facility] Address [address] [facility] [place] [address] Phone Care Team Providers Care An/Ssn 2 4 Operator Name Role Phone Charles Evans MD Primary Care Provider [phone] Pedro Soler MD Unavailable Martell Craig MD Unavailable [phone] Dick Godoy MD Unavailable [phone] Doug Glaser MD Unavailable [phone] Brii Babin APRN, FURNITURE RENTAL CONSULTANT Unavailable Kacie Boyle APRN, [facility] Unavailable + [phone] Immanuel Coughlin MD Unavailable [phone] Florentin Diaz MD Primary Care Provider [phone] Reason for Visit * Reason Comments Medication Refill Encounter Details Date Type Department Care Team (Late st Contact Info) Description 01/26/2024 Refill [facility] - G[facility]enterology - [place] #2 [place] [address] Brii Babin APRN, FURNITURE RENTAL CONSULTANT #[address] [place], [place] [id number] Medication Refill Social History Tobacco Use Types Packs/Day Years Used Date Smoking Tobacco: Former Cigarettes 0.5 4 0 02/06/2002 - 02/06/2006 Smokeless Tobacco: Never Alcohol Use Standard Drinks/Week Comments No 0 (1 standard drink = 0.6 oz pur e alcohol) [facility] Utilities Answer Date Recorded In the past 12 months has e electric, gas, oil, or water company threatened to shut off services in your home? Patient declined 11/17/2023 Social Connection and Isolation Panel [NHANES] A nswer Date Recorded In a typical week, how many times do you talk on the phone with family, friends, or neighbors? Patient declined 11/17/2023 How often do you get togethe r with friends or relatives? Patient declined 11/17/2023 How often do you attend shinto or restorationism serv ices? Patient declined 11/17/2023 Do you belong to any clubs o r organizations such as shinto groups, unions, fraternal or athletic groups, or school groups? Patient declined 11/17/2023 How often do you attend meet ings of the clubs or organizations you belong to? Patient declined 11/17/2023 Are you , , di vorced, , never , or living with a partner? Patient declined 11/17/2023 AUDIT-C Answer Date Recorded Q1: How often do you have a drink containing alc ohol? Patient declined 11/17/2023 Q2: How many drinks containi ng alcohol do you have on a typical day when you are drinking? Patient declined 11/17/2023 Q3: How often do you have si x or more drinks on one occasion? Patient declined 11/17/2023 Overall Financial Resource Strain (CARDIA) Answe r Date Recorded How hard is it for you to pa y for the very basics like food, housing, medical care, and heating? Patient declined 11/17/2023 PHQ-2 Answer Date Recorded Total Score - Questions 1-9 0 11/06 [facility] of Occupat ional Health - Occupational Stress Questionnaire Answer Date Recorded Do you feel stress - tense, restless, nervous, or anxious, or unable to sleep at night because your mind is troubled all the time - these days? Patient declined 11/17/2023 Exercise Vital Sign Answer Date Recorde d On average, how many days pe r week do you engage in moderate to strenuous exercise (like a brisk walk)? Patient declined On average, how many minutes do you engage in exercise at this level? Patient declined 11/17/2023 Hunger Vital Sign Answer Date Recorded Within the past 12 months, y ou worried that your food would run out before you got the money to buy more. Patient declined Within the past 12 months, t he food you bought just didn't last and you didn't have money to get more. Patient declined 07/2024 PRAPARE - Transportation Answer Date Re corded In the past 12 months, has l ack of transportation kept you from medical appointments or from getting medications? Patient declined 11/17/2023 In the past 12 months, has l ack of transportation kept you from meetings, work, or from getting things needed for daily living? Patient declined 11/17/2023 Housing Stability Vital Sign Answer Humza e Recorded In the last 12 months, was t here a time when you were not able to pay the mortgage or rent on time? Patient declined 11/17/19 24 Number of Places Lived in the Last Year Not on f ile 11/17/2023 In the last 12 months, was t here a time when you did not have a steady place to sleep or slept in a senior care (including now)? Patient declined 11/17/2023 Education Answer Date Recorded What is the highest level of school you have completed or the highest degree you have received? 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 Requested Prescriptions Pending Prescriptions Disp Refills amitriptyline (ELAVIL) 10 MG Tablet [Pharmacy Med Name: AMITRIPTYLINE 10MG TABLETS] 90 Tablet 1 Sig: TAKE 1 TABLET BY MOUTH EVERY NIGHT Not Delegated - Tricyclic Agents Protocol Failed - 01/26/2024 12:21 PM Failed - This refill cannot be delegated Passed - Visit with relevant provider in past 12 months or upcoming 90 days Recent Visits Date Type Provider Dept 11/17/23 Office Visit Muriel Hays APRN, [facility] [place] 09/03/23 Office Visit Chrales Evans MD [facility] [place] 08/06/23 Office Visit Charles Evans MD [facility] [place] 06/23/23 Office Visit Bulmaro Gray MD [facility] [place] 04/10/23 [facility] [place] Showing recent visits within past 365 days and meeting all other requirements Future Appointments Date Type Provider Dept 02/04/24 Appointment [facility] Showing future appointments within next 90 days and meeting all other requirements documented in this encounter Plan of Treatment Not on file documented as of this encounter Visit Diagnoses Not on filedocumented in this encounter Additional Health Concerns Assessment Noted Time PHQ-9 Depression Total Score: 0 11/17/19 4:35 PM CDT documented as of this encounter Care Teams An/Ssn 2 4 Operator Relationship Specialty Start Date End Date Charles Evans MD #[address] [address] PCP - General Family Medicine 06/24/18 01/12/25 Florentin Diaz MD [address] [place] [address] PCP - General Family Medicine 01/13/25 Pedro Soler MD #2 [facility] [address] [place] [address] Consulting Physician Colon and Rectal Surgery 04/02/22 Martell Craig MD #2 [place] [phone] Consulting Physician Neurology 10/21/22 Dick Godoy MD #2 [place] [address] Consulting Physician Gastroenterology 08/15/22 Doug Glaser MD #[address] [address] Consulting Physician General Surgery 05/07/24 Brii Babin APRN, [facility] #[address] [place] [address] Nurse Practitioner Advanced Practice Nurse 04/16/24 Kacie Boyle, MARYLU, [facility] #[address] [place] [address] Nurse Practitioner Advanced Practice Nurse 06/24/24 Immanuel Coughlin MD 2 [facility] [address] [place] [address] Consulting Physician General Surgery 07/08/24 documented as of this encounter
--- OUTSIDE RECORDS SUMMARY | 2025-02-04 15:21 | XMS_ITS | Encounter Summary ---
Author Organization [facility] Address [address] [address] [facility] [place] [address] Phone Care Team Providers Care Wearing Apparel Shaker Name Role Phone Charles Evans MD Primary Care Provider [phone] Pedro Soler MD Unavailable Martell Craig MD Unavailable [phone] Dick Godoy MD Unavailable [phone] Doug Glaser MD Unavailable [phone] Brii Babin APRN, BAND SCROLL SAW OPERATOR Unavailable Kacie Boyle APRN, RECRUITER MANAGER Unavailable + [phone] Immanuel Coughlin MD Unavailable [phone] Florentin Diaz MD Primary Care Provider [phone] Reason for Referral * Radiology Services (Routine) - Closed Specialty Diagnoses / Procedures Referred By Zechariah min Referred To Contact Radiology Diagnoses Pre-op testing Procedures EKG 12 LEAD Panda Feldman MD [address] [place] [address] Phone: tel: fax: Referral ID Status Reason Start Date Expiration Date Visits Re quested Visits Authorized [id number] Closed 07/03/2020 1 1 Encounter Details Date Type Department Care Team (Late st Contact Info) Description 07/03/2020 Transcribe Orders [facility] Preop/Pacu II [address] [place] [address] Panda Feldman MD [address] [place] [address] Pre-op testing (Primary Dx) Social History Tobacco [...] Sex Assigned at Female 08/29/2023 3:02 PM ELECTRICAL PROSPECTING ENGINEER Legal Sex Female 8:57 PM CDT Gender Identity Female 08/29/2023 3:02 PM ELECTRICAL PROSPECTING ENGINEER Sexual Orientation Straight 08/29/2023 3: 02 PM ELECTRICAL PROSPECTING ENGINEER Occupation Industry Job Start Date Job End Date [employer] Not on file Not on file Not on file COVID-19 Exposure Response Date Recorded In the last month, have you been in contact with someone who was confirmed or suspected to have Coronavirus / COVID-19? No / Unsure 07/06/2020 11:08 AM CDT documented as of this encounter Plan of Treatment Not on file documented as of this encounter Results * EKG 12 LEAD (07/06/2020 11:32 AM CDT) Ventricular Rate BPM EXTERNAL EKG Atrial Rate BPM EXTERNAL EKG P-R Interval 152 ms EXTERNAL EKG QRS Duration 76 ms EXTERNAL EKG Q-T Duration 396 ms EXTERNAL EKG QTC CALCULATION 428 ms EXTERNAL EKG P [place] 60 degrees EXTERNAL EKG R [place] 29 degrees EXTERNAL EKG T [place] 25 degrees EXTERNAL EKG 07/06/2020 11:3 2 AM CDT Impressions EXTERNAL EKG - 07/07/2020 1:06 PM CDT Sinus rhythm Poor R wave progression Inferior/lateral T abnormality is nonspecific Comparison Summary: No serial comparison made Summary: Abnormal ECG Confirmed by Gen Savage [id number] on 07/07/2020 1:06:42 PM Narrative Procedure Note Krystal Blevins MD - 07/07/2020 IMPRESSION: Sinus rhythm Poor R wave progression Inferior/lateral T abnormality is nonspecific Comparison Summary: No serial comparison made Summary: Abnormal ECG Confirmed by Gen Savage [id number] on 07/07/2020 1:06:42 PM Panda Feldman MD IMG ECG ORDERABLES Final Resu lt EXTERNAL EKG * BASIC METABOLIC PANEL W/ CALCIUM TOTAL (07/06/2020 11:23 AM CDT) SODIUM 141 136 - 144 mmol/L 07/06/2020 12:52 PM CDT [facility] POTASSIUM 4.1 3.5 - 5.1 mmol/L 07/06/2020 12:52 PM CDT [facility] CHLORIDE 103 100 - 110 mmol/L 07/06/2020 12:52 PM CDT [facility] CO2, VENOUS 28 22 - 32 mmol/L 07/06/2020 12:52 PM CDT [facility] ANION GAP 14.1 8.0 - 20.0 mmol/L 07/06/2020 12:52 PM CDT [facility] GLUCOSE 88 70 - 99 mg/dL 07/06/2020 12:52 PM CDT [facility] BUN 12 8 - 23 mg/dL 07/06/2020 12:52 PM CDT [facility] CREATININE, BLOOD 0.84 0.60 - 1.10 mg/dL 07/06/2020 12:52 PM CDT [facility] BUN/CREATININE RATIO 14 12 - 20 ratio 07/06/2020 12:52 PM CDT [facility] CALCIUM 8.9 8.9 - 10.3 mg/dL 07/06/2020 12:52 PM CDT [facility] GFR, EST. NONAFRICAN >60 >=60 07/06/2020 12:52 PM CDT [facility] GFR, EST. >60 >=60 07/06/2020 12:52 PM CDT [facility] Comment: Creatinine Clearance is the preferred criteria for selecting drug dose adjustments in renally impaired patients. The GFR is provided as additional pertinent clinical information. GFR is reported in mL/min/1.73 sq m. Blood Venipuncture / Unknown 07/06/2020 11:23 AM CDT 07/06/2020 12:26 PM CDT Panda Feldman MD CHEMISTRY ORDERABLES Final Re sult Performing Organization Address City/[facility]/ZIP Co de Phone Number [facility] [address] [place] [address] * HEMOGLOBIN & HEMATOCRIT (H&H) (07/06/2020 11:23 AM CDT) HEMOGLOBIN (HGB) 12.5 12.0 - 15.8 g/dL 07/06/2020 12:30 PM CDT [facility] HEMATOCRIT (HCT) 38.8 36.0 - 47.0 % 07/06/2020 12:30 PM CDT [facility] Blood Venipuncture / Unknown 07/06/2020 11:23 AM CDT 07/06/2020 12:25 PM CDT Panda Feldman MD HEMATOLOGY ORDERABLES Final R esult [facility] [address] [place] [address] documented in this encounter Visit Diagnoses Diagnosis Pre-op testing- Primary Preoperative examination, unspecified Pre-op testing Preoperative examination, unspecified documented in this encounter Additional Health Concerns Infection Onset Date Last Indicated Resolved Time COVID - 19 08/24/2021 08/24/2021 09/13/2021 12:1 6 AM ELECTRICAL PROSPECTING ENGINEER COVID - 19 Confirmed 08/24/2021 08/24/2021 022 12:16 AM ELECTRICAL PROSPECTING ENGINEER COVID - 19 Confirmed 02/20/2022 02/20/2022 022 12:16 AM CDT C. difficile Rule-Out 03/19/2023 03/20/20232022 10:56 PM CDT COVID - 19 06/23/2023 06/23/2023 07/03/2023 12:1 6 AM CDT COVID - 19 11/20/2023 11/17/2023 11/20/2023 8:03 PM CDT Assessment Noted Time PHQ-9 Depression Total Score: 0 05/22/20 20 2:24 PM CDT documented as of this encounter Care Teams Wearing Apparel Shaker Relationship Specialty Start Date End Date Charles Evans MD [address] [address] PCP - General Family Medicine 06/24/18 01/12/25 Florentin Diaz MD [address] [place] [address] PCP - General Family Medicine 01/13/25 Pedro Soler MD [address] [address] Consulting Physician Colon and Rectal Surgery 04/02/22 Martell Craig MD [address] [place] [id number] Consulting Physician Neurology 10/21/22 Dick Godoy MD [address] [place] [address] Consulting Physician Gastroenterology 08/15/22 Doug Glaser MD [address] [phone] Consulting Physician General Surgery 05/07/24 Brii Babin APRN, [facility] [address] [place] [address] Nurse Practitioner Advanced Practice Nurse 04/16/24 Kacie Boyle APRN, [facility] [address] [place] [address] Nurse Practitioner Advanced Practice Nurse 06/24/24 Immanuel Coughlin MD [address] [address] Consulting Physician General Surgery 07/08/24 documented as of this encounter
--- OUTSIDE RECORDS SUMMARY | 2025-02-04 15:22 | XMS_ITS | Clinical Summary ---
Author Organization [facility] [address] [address] Phone Care Team Providers Care Legal Librarian Name Role Phone Pedro Soler MD Unavailable Martell Craig MD Unavailable [phone] Dick Godoy MD Unavailable [phone] Doug Glaser MD Unavailable Brii Babin APRN, PLANNING TECHNICIAN Unavailable Kacie Boyle APRN, DOOR PATCHER Unavailable + [phone] Immanuel Coughlin MD Unavailable [phone] Florentin Diaz MD Primary Care Provider [phone] Allergies Active Allergy Reactions Criticality Noted Date Comments Neomycin Hives,Rash High 11/12/2018 Blisters Neomycin-Bacitracin Zn-Polymyx Hives,Rash High 07/19 Blisters Tea Tree Oil Other (see Comments) 05/09/2020 blisters Medications ondansetron (ZOFRAN) 8 MG Tablet Take 1 tablet every 8 hours by oral route as needed. Active pantoprazole (PROTONIX) 40 MG Tablet Delayed ResponseIndicati ons:Gastroesopha geal reflux disease with esophagitis without hemorrhage Take 1 Tablet by mouth daily. 90 Tablet 1 4 Active Additional Information Patient not taking.Reported on 01/13/2025 amitriptyline (ELAVIL) 10 MG Tablet TAKE 1 TABLET BY MOUTH EVERY NIGHT 90 Tablet 1 4 Active Additional Information Patient not taking.Reported on 01/13/2025 valACYclovir (VALTREX) 1 GM Tablet Take 1 Tablet by mouth daily. 90 Tablet 3 4 Active buPROPion (WELLBUTRIN) 300 MG TABLET SR 24 HR XL tabletIndication s:Depression, unspecified depression type Take 1 Tablet by mouth every morning. 90 Tablet 3 4 Active citalopram (CeleXA) 40 MG TabletIndication s:Depression, unspecified depression type Take 1 Tablet by mouth daily. 90 Tablet 2 4 Active famotidine (PEPCID) 20 MG TabletIndication s:RUQ pain,Gastroesoph ageal reflux disease, unspecified whether esophagitis present Take 1 Tablet by mouth every evening. 90 Tablet 4 Active Additional Information Patient not taking.Reported on 01/13/2025 Topiramate (Topamax) 50 MG TabletIndication s:Chronic migraine w/o aura w/o status migrainosus, not intractable Take 1 Tablet by mouth 2 times daily. 60 Tablet 5 4 Active SUMAtriptan (IMITREX) 100 MG TabletIndication s:Chronic migraine w/o aura w/o status migrainosus, not intractable Take 1 Tablet by mouth daily as needed for Migraine. Use as directed. May repeat dose in 2 hours if headache recurs. 9 Tablet 3 4 Active alendronate (FOSAMAX) 70 MG Tablet Take 70 mg by mouth once a week. 5 11/27/19 26 Active CALCIUM CARBONATE-VITAMI N D PO Take by mouth. 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 Tinnitus 04/11/2016 Referred otalgia 04/11/2016 DNS (deviated nasal septum) 04/11/2016 Hypertrophy of inferior nasal turbinate 04/11/20 16 Malocclusion due to mouth breathing 04/11/2016 TMJ (temporomandibular joint syndrome) 6 Colon polyps 08/07/2015 Internal hemorrhoids 08/07/2015 Ovarian cyst 08/02/2015 Depression 07/19/2015 Anxiety 07/19/2015 Hypothyroidism 07/19/2015 RA (rheumatoid arthritis) 07/19/2015 Encounters Date Type Department Care Team Description 02/03/2025 1:49 PM CDT - 02/03/2025 11:59 PM CDT [facility] [address] [place] [address] Florentin Diaz MD Arrived Discharge Disposition: Discharged to home or Selfcare 02/03/2025 12:53 PM CDT - 02/03/2025 1:48 PM CDT [facility] M[facility] [address] [place] [address] Florentin Diaz MD Arrived Discharge Disposition: Discharged to home or Selfcare 02/01/2025 Travel 01/18/2025 Transcribe Orders [facility] Scheduling [address] [place] [address] Florentin Diaz MD Abnormal mammography (Primary Dx) 01/13/2025 10:30 AM CDT Office Visit [facility] - Gastroenterology [facility] [address] [place] [address] Immanuel Coughlin MD Gastroesophageal reflux disease with esophagitis without hemorrhage (Primary Dx); Constipation, unspecified constipation type Discharge Disposition: Discharged to home or Selfcare 01/13/2025 [facility] [address] [place] [address] Charles Evans MD 01/13/2025 Refill [facility] [address] [place] [address] Charles Evans MD Medication Refill 01/11/2025 Travel 01/05/2025 Telephone [facility] [facility] [place] [address] Brii Babin APRN, PLANNING TECHNICIAN Appointment from Last 3 Months Immunizations Immunization Administration Dates Next Due Influenza Vaccine greater than 3 yrs 05/25/2013 Influenza Vaccine, Quadrivalent, PF 08/07/2015 Influenza, Injectable, Quadrivalent 07/02/2017 Influenza, Seasonal, Injectable, Undefined 05/25 PUR FLU 3+ YRS PRES FREE QUAD IM 08/07/2015,07/1108/07/2016 Pneumococcal Vaccine Adult - 23 Valent 8 TD VACCINE 10/29/2022 TDAP Vaccine 05/20/2013 Family History Medical History Relation Name Comments No Known Problems Daughter Asthma Father Chronic Obstructive Pulmonary Disease Father Cancer Maternal Aunt CERVICAL Asthma Maternal Grandfather Emphysema Maternal Grandfather Hypertension Maternal Grandmother Cancer Maternal Uncle HEART Cancer Mother Chronic Obstructive Pulmonary Disease Mother Diabetes Mother Hypertension Mother Lung Cancer Mother Lung Cancer Other 1 Unccle (Meso.) Colon Cancer Other 2 great aunt and uncles No Known Problems Paternal Grandfather Tuberculosis Paternal Grandmother Asthma Sister 1 Hypertension Sister 2 Relation Name Status Comments Daughter Alive Father Alive Maternal Aunt Maternal Grandfather Maternal Grandmother Maternal Uncle Mother Other 1 Other 2 Paternal Grandfather Paternal Grandmother Sister 1 Alive Sister 2 Alive Social History Tobacco Use Types Packs/Day Years Used Date Smoking Tobacco: Former Cigarettes 0.5 4 0 02/06/2002 - 02/06/2006 Smokeless Tobacco: Never Tobacco Cessation:Counseling Given: Not Answered Alcohol Use Standard Drinks/Week Comments No 0 (1 standard drink = 0.6 oz pur e alcohol) [facility] Utilities Answer Date Recorded In the past 12 months has e imgfave, gas, oil, or water [employer] threatened to shut off services in your home? No 07/03/2024 Social Connection and Isolat ion Panel [NHANES] Answer Date Recorded In a typical week, how many times do you talk on the phone with family, friends, or neighbors? More than three times a week 07/03/2024 How often do you get togethe r with friends or relatives? More than three times a week 07/03/2024 How often do you attend chur or pentecostalism services? More than 4 times per year 07/03/2024 Do you belong to any clubs o r organizations such as latter-day groups, unions, fraternal or athletic groups, or school groups? Yes 07/03/2024 How often do you attend meet ings of the clubs or organizations you belong to? More than 4 times per year 07/03/2024 Are you , , di vorced, , never , or living with a partner? 07/03/2024 AUDIT-C Answer Date Recorded Q1: How often do you have a drink containing alcohol? Never 07/03/2024 Q2: How many drinks containi ng alcohol do you have on a typical day when you are drinking? Patient does not drink Q3: How often do you have si x or more drinks on one occasion? Never 07/03/2024 Overall Financial Resource Strain (CARDIA) Answe r Date Recorded How hard is it for you to pa y for the very basics like food, housing, medical care, and heating? Not hard at all 07/03/2024 PHQ-2 Answer Date Recorded Total Score - Questions 1-9 0 02/06 [facility] - Occupational Stress Questionnaire Answer Date Recorded Do you feel stress - tense, restless, nervous, or anxious, or unable to sleep at night because your mind is troubled all the time - these days? Not at all 07/03/2024 Exercise Vital Sign Answer Date Recorde d On average, how many days pe r week do you engage in moderate to strenuous exercise (like a brisk walk)? 3 days 07/03/2024 On average, how many minutes do you engage in exercise at this level? 20 min 07/03/2024 Hunger Vital Sign Answer Date Recorded Within the past 12 months, y ou worried that your food would run out before you got the money to buy more. Never true 07/03/20 24 Within the past 12 months, t he food you bought just didn't last and you didn't have money to get more. Never true 07/03/2024 PRAPARE - Transportation Answer Date Re corded In the past 12 months, has l ack of transportation kept you from medical appointments or from getting medications? No 06/09 In the past 12 months, has l ack of transportation kept you from meetings, work, or from getting things needed for daily living? No 07/03/2024 Housing Stability Vital Sign Answer Humza e [...] place to sleep or slept in a fdc (including now)? Patient declined 11/17/2023 Housing Stability Vital Sign Answer Humza e Recorded In the last 12 months, was t here a time when you were not able to pay the mortgage or rent on time? No 07/03/2024 Number of Times Moved in the Last Year Not on fi le 07/03/2024 At any time in the past 12 m [facility], were you homeless or living in a fdc (including now)? No 07/03/2024 Education Answer Date Recorded What is the highest level of school you have completed or the highest degree you have received? 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 on file Not on file Not on file Last Filed Vital Signs Vital Sign Reading Time Taken Comments Blood Pressure 144/82 01/13/2025 10:29 AM CDT Pulse 51 01/13/2025 10:29 AM CDT Temperature 36.9 C (98.4 F) 01/13/2025 10:29 AM CDT Respiratory Rate 14 01/13/2025 10:29 AM CDT Oxygen Saturation 99% 01/13/2025 10:29 AM CDT Inhaled Oxygen Concentration - - Weight 62.6 kg (138 lb 1.6 oz) 01/13/2025 10:29 AM CDT Height 157.5 cm (5' 2) 01/13/2025 10:29 AM CDT Body Mass Index 25.26 01/13/2025 10:29 AM CDT Plan of Treatment Health Maintenance Due Date Last Done Comments Hepatitis C Virus (HCV) Screening 1959 Cologuard 2009 Immunochemical Fecal Occult Blood 2009 Pneumococcal Immunization (50+ years) (2 of 2 - PCV) 08/08/2009 08/08/2008 Respiratory Syncytial Virus (RSV) Immunization (Adult) (1 - Risk 60-74 years 1-dose series) 2019 SARS-COV-2 Immunization ( - 2023- season) 2024 Influenza Immunization (Season Ended) 2025 07/02/2017, 08/07/2015, 08/07/2015, Additional history exists Mammogram 02/03/2026 02/03/2025, 04/08, 01/17/2020, Additional history exists DEXA Bone Density 11/18/2026 11/18/2024 Colonoscopy 05/15/2032 05/15/2022, 08/0 12/2016, 04/11/2017, Additional history exists Colorectal Cancer Screening 05/15/2032 Td Immunization Every 10 Years (Adults With 1 Tdap) 10/29/2032 10/29/2022, 05/20/2013 05/15/2022, 08/0 12/2016, 04/11/2017, Additional history exists Pneumococcal Immunization Combined Discontinued 08/08/2008 Cervical Cancer Screening (CCS) Discontinued HPV/Cotest Discontinued 10/09/2020 Pap Smear Discontinued 10/09/2020 Hepatitis B Immunization Aged Out No longer eligible based on patient's age to complete this topic Human Papillomavirus (HPV) Immunization Aged Out No longer eligible based on patient's age to complete this topic Meningococcal Immunization (ACWY) Aged Out No longer eligible based on patient's age to complete this topic Rotavirus Immunization Aged Out No lo nger eligible based on patient's age to complete this topic Zoster Immunization Discontinued Procedures Procedure Name Priority Date/Time Associated Diagnosis Comments TERENCE US BREAST LIMITED RT Routine 02/03/2025 2:32 PM CDT Abnormal mammography TERENCE DIAG BILATERAL DIGITAL W CAD W PUJA Routine 02/03/2025 1:59 PM CDT Abnormal mammography HUMAN PAPILLOMA VIRUS (HPV) Routine 10/09/2020 1:[address]ER Encounter for gynecological examination (general) (routine) with abnormal findings Encounter for screening for human papillomavirus (HPV) PATHOLOGY CYTOLOGY ACTUARIAL ASSOCIATE Routine 10/09/2020 1:[address] WORKER Encounter for gynecological examination (general) (routine) with abnormal findings from Last 3 Months or Most Recently Relevant to Health Maintenance Results * TERENCE US BREAST LIMITED RT (02/03/2025 2:32 PM CDT) Anatomical Region Laterality Modality breast Right Ultrasound 02/03/2025 1:07 PM CDT Narrative 02/03/2025 2:50 PM CDT - TERENCE DIAG BILATERAL DIGITAL W CAD W PUJA - TERENCE US BREAST LIMITED RT BILATERAL DIGITAL DIAGNOSTIC MAMMOGRAM 3D/2D WITH CAD WITH MEDIOLATERAL OBLIQUE CRANIOCAUDAL AND RIGHT ULTRASOUND: 02/03/2025 The study was acquired using digital technology and interpreted from soft copy. Current study was also evaluated with ICAD version 7.2. 2D digital mammographic views, as well as 3D digital tomosynthesis were performed in the CC and MLO projections. CLINICAL: Diagnostic study. Patient reports right lump in lateral breast for about 6 months with tenderness to palpation. No personal history of cancer. No family history of breast cancer. COMPARISONS: Comparison is made to exams dated: 04/25/2022, 01/17/2020, and 01/11/2019 [facility]. BREAST TISSUE:The breasts are heterogeneously dense, which may obscure small masses. FINDINGS: No significant masses or calcifications are seen in either breast on the mammogram or targeted right breast ultrasound. No lesions are seen underlying the palpable area of concern at the 9 o'clock position of the right breast, 6 cm from the nipple. IMPRESSION: OVERALL STUDY BIRADS: CATEGORY 1: NEGATIVE There is no mammographic or sonographic evidence of malignancy. The palpable area of concern in the right breast should be managed clinically. A 1 year screening mammogram is recommended. The results and recommendations were discussed with the patient. Electronically signed by: Jose Eduardo Yepez M.D. ll/:02/03/2025 14:35:24 Property Claims Adjuster(s): RT Dennis(R)(M), [facility]; Emma García, [facility] letter sent: Normal Exam Reading location: [facility] OVERALL STUDY BIRADS: Category 1: Negative Procedure Note Jose Eduardo Yepez MD - 02/03/2025 - TERENCE DIAG BILATERAL DIGITAL W CAD W PUJA - TERENCE US BREAST LIMITED RT BILATERAL DIGITAL DIAGNOSTIC MAMMOGRAM 3D/2D WITH CAD WITH MEDIOLATERAL OBLIQUE CRANIOCAUDAL AND RIGHT ULTRASOUND: 02/03/2025 The study was acquired using digital technology and interpreted from soft copy. Current study was also evaluated with logtrust version 7.2. 2D digital mammographic views, as well as 3D digital tomosynthesis were performed in the CC and MLO projections. CLINICAL: Diagnostic study. Patient reports right lump in lateral breast for about 6 months with tenderness to palpation. No personal history of cancer. No family history of breast cancer. COMPARISONS: Comparison is made to exams dated: 04/25/2022, 01/17/2020, and 01/11/2019 [facility]. BREAST TISSUE:The breasts are heterogeneously dense, which may obscure small masses. FINDINGS: No significant masses or calcifications are seen in either breast on the mammogram or targeted right breast ultrasound. No lesions are seen underlying the palpable area of concern at the 9 o'clock position of the right breast, 6 cm from the nipple. IMPRESSION: OVERALL STUDY BIRADS: CATEGORY 1: NEGATIVE There is no mammographic or sonographic evidence of malignancy. The palpable area of concern in the right breast should be managed clinically. A 1 year screening mammogram is recommended. The results and recommendations were discussed with the patient. Electronically signed by: Jose Eduardo Yepez M.D. ll/:02/03/2025 14:35:24 Property Claims Adjuster(s): RT Dennis(R)(M), [facility]; Emma García, [facility] letter sent: Normal Exam Reading location: [facility] OVERALL STUDY BIRADS: Category 1: Negative us Florentin Diaz MD IMG MAMMO ORDERABLES Final Resu lt * TERENCE DIAG BILATERAL DIGITAL W CAD W PUJA (02/03/2025 1:59 PM CDT) Anatomical Region Laterality Modality breast Bilateral Mammography 02/03/2025 1:07 PM CDT Narrative 02/03/2025 2:50 PM CDT - TERENCE DIAG BILATERAL DIGITAL W CAD W PUJA - TERENCE US BREAST LIMITED RT BILATERAL DIGITAL DIAGNOSTIC MAMMOGRAM 3D/2D WITH CAD WITH MEDIOLATERAL OBLIQUE CRANIOCAUDAL AND RIGHT ULTRASOUND: 02/03/2025 The study was acquired using digital technology and interpreted from soft copy. Current study was also evaluated with ICAD version 7.2. 2D digital mammographic views, as well as 3D digital tomosynthesis were performed in the CC and MLO projections. CLINICAL: Diagnostic study. Patient reports right lump in lateral breast for about 6 months with tenderness to palpation. No personal history of cancer. No family history of breast cancer. COMPARISONS: Comparison is made to exams dated: 04/25/2022, 01/17/2020, and 01/11/2019 [facility]. BREAST TISSUE:The breasts are heterogeneously dense, which may obscure small masses. FINDINGS: No significant masses or calcifications are seen in either breast on the mammogram or targeted right breast ultrasound. No lesions are seen underlying the palpable area of concern at the 9 o'clock position of the right breast, 6 cm from the nipple. IMPRESSION: OVERALL STUDY BIRADS: CATEGORY 1: NEGATIVE There is no mammographic or sonographic evidence of malignancy. The palpable area of concern in the right breast should be managed clinically. A 1 year screening mammogram is recommended. The results and recommendations were discussed with the patient. Electronically signed by: Jose Eduardo Yepez M.D. ll/:02/03/2025 14:35:24 Property Claims Adjuster(s): Lyudmila Salinas, RT(R)(M), [facility]; Emma García, [facility] letter sent: Normal Exam Reading location: [facility] OVERALL STUDY BIRADS: Category 1: Negative Procedure Note Jose Eduardo Yepez MD - 02/03/2025 - TERENCE DIAG BILATERAL DIGITAL W CAD W PUJA - TERENCE US BREAST LIMITED RT BILATERAL DIGITAL DIAGNOSTIC MAMMOGRAM 3D/2D WITH CAD WITH MEDIOLATERAL OBLIQUE CRANIOCAUDAL AND RIGHT ULTRASOUND: 02/03/2025 The study was acquired using digital technology and interpreted from soft copy. Current study was also evaluated with ICAD version 7.2. 2D digital mammographic views, as well as 3D digital tomosynthesis were performed in the CC and MLO projections. CLINICAL: Diagnostic study. Patient reports right lump in lateral breast for about 6 months with tenderness to palpation. No personal history of cancer. No family history of breast cancer. COMPARISONS: Comparison is made to exams dated: 04/25/2022, 01/17/2020, and 01/11/2019 [facility]. BREAST TISSUE:The breasts are heterogeneously dense, which may obscure small masses. FINDINGS: No significant masses or calcifications are seen in either breast on the mammogram or targeted right breast ultrasound. No lesions are seen underlying the palpable area of concern at the 9 o'clock position of the right breast, 6 cm from the nipple. IMPRESSION: OVERALL STUDY BIRADS: CATEGORY 1: NEGATIVE There is no mammographic or sonographic evidence of malignancy. The palpable area of concern in the right breast should be managed clinically. A 1 year screening mammogram is recommended. The results and recommendations were discussed with the patient. Electronically signed by: Jose Eduardo Yepez M.D. ll/:02/03/2025 14:35:24 Property Claims Adjuster(s): Lyudmila Salinas RT(R)(M), [facility]; Emma García, [facility] letter sent: Normal Exam Reading location: [facility] OVERALL STUDY BIRADS: Category 1: Negative us Florentin Diaz MD IMG MAMMO ORDERABLES Final Resu lt * PATHOLOGY CYTOLOGY ACTUARIAL ASSOCIATE (10/09/2020 1:[address] WORKER) SPECIMEN ADEQUACY Satisfactory for evaluation. Squamous cells only. History of hysterectomy is noted. 10/19/2020 10:[address] [facility] DESCRIPTIVE DIAGNOSIS NEGATIVE FOR INTRAEPITHELIAL LESIONS OR MALIGNANCY. 10/19/2020 10:[address] [facility] at [address] OTHER FINDINGS Atrophic hormonal pattern with abundant inflammatory cells. 10/19/2020 10:[address] [facility] HPV Reflex if ASCUS? No 10/19/2020 10:[address] [facility] Automated Examination Analysis of this sample has been assisted by an automated imaging and review system ([employer] [facility], [employer], [place], [place]). This case is further evaluated and finalized by a boat carpenter mechanic and/or pathologist. 10/19/2020 10:[address]ER [facility] Disclaimer The PAP smear is a screening test designed to detect cancerous or precancerous cells of the uterine cervix. It is one of the best means available for detection of cervical cancer but still carries an inherent false-negative rate. The consequences of a false-negative PAP result can be minimized by adhering to current screening guidelines. The following are general guidelines recommended by the ACS, ASCP, ASCCP, and ACOG: PAP testing is recommended every three years for women 21-29, Co-Testing, a PAP test in conjunction with an HPV (Human Papillomavirus) test for women ages 30-65, and no PAP or HPV testing for women under the age of 21 or older than 65 unless clinically indicated. 10/19/2020 10:[address] [facility] Other VAGINAL STRUCTURE / Unknown Non-Phlebotomy Collection / Unknown 10/09/2020 1:[address]ER 10/09/2020 1:[address] WORKER us Muriel Hays STAVE SAW OPERATOR, PLANNING TECHNICIAN PATHOLOGY/CYTOLOGY O RDERABLES Final Result [facility] [address] [place] [address], * HUMAN PAPILLOMA VIRUS (HPV) (10/09/2020 1:[address]) HPV OTHER HIGH RISK TYPES, PCR NEGATIVE NEGATIVE 10/11/2020 2:[address] [facility] Comment: The following Other High Risk types were not detected: 31, 33, 35, 39, 45, 51, 52, 56, 58, 59, 66, and 68. A negative high-risk HPV result does not exclude the possibility of future cytologic HSIL or underlying CIN2-3 or cancer. The presence of PCR inhibitors may cause false negative or invalid results. If concentrations of whole blood in the sample exceed 1.5% (dark red or brown coloration) in PreservCyt solution, there is a likelihood of obtaining a false-negative result. HPV TYPE 16 NEGATIVE NEGATIVE 10/11/2020 2:[address] [facility] Comment: A negative high-risk HPV result does not exclude the possibility of future cytologic HSIL or underlying CIN2-3 or cancer. The presence of PCR inhibitors may cause false negative or invalid results. If concentrations of whole blood in the sample exceed 1.5% (dark red or brown coloration) in PreservCyt solution, there is a likelihood of obtaining a false-negative result. HPV TYPE 18 NEGATIVE NEGATIVE 10/11/2020 2:[address] [facility] Comment: A negative high-risk HPV result does not exclude the possibility of future cytologic HSIL or underlying CIN2-3 or cancer. The presence of PCR inhibitors may cause false negative or invalid results. If concentrations of whole blood in the sample exceed 1.5% (dark red or brown coloration) in PreservCyt solution, there is a likelihood of obtaining a false-negative result. HPV ORDER BE USED FOR SCREENING OR DIAGNOSTIC SCREENING 10/11/2020 2:[address] [facility] Other Non-Phlebotomy Collection / Unknown 10/09/2020 1:[address] 10/09/2020 1:[address]ER Narrative [facility] - 10/11/2020 2:[address]ER Performed by Real-Time Polymerase Chain Reaction (PCR) on the Edis Reji 4800. This assay has been validated for use with post-aliquot samples from the Linguee T5000 processor. us Muriel Hays APRN, CNP LAB SEND OUTS Shannen welch Result [facility] [address] [place] [address], [facility] [address] [place] [address] from Last 3 Months or Most Recently Relevant to Health Maintenance Insurance MEDICARE [employer] Care Teams Legal Librarian Relationship Specialty Start Date End Date Florent[place] [address] PCP - General Family Medicine 01/13/25 Pedro Soler MD [address] [address] Consulting Physician Colon and Rectal Surgery 04/02/22 Martell Craig MD [address] [place] [address] Consulting Physician Neurology 10/21/22 Dick Godoy MD #2 [place] [address] Consulting Physician Gastroenterology 08/15/22 Doug Glaser MD #[address] [phone] Consulting Physician General Surgery 05/07/24 Brii Babin APRN, [facility] [address] [place] [address] Nurse Practitioner Advanced Practice Nurse 04/16/24 Kacie Boyle APRN, [facility] [address]2 [place] [address] Nurse Practitioner Advanced Practice Nurse 06/24/24 Immanuel Coughlin MD [address] [address] Consulting Physician General Surgery 07/08/24
--- OUTSIDE RECORDS SUMMARY | 2025-02-04 15:22 | XMS_ITS | Encounter Summary ---
Author Organization [facility] Address [address] [facility] [place] [address] Care Team Providers Care Research Worker Kitchen Name Role Phone Charles Evans MD Primary Care Provider Encounter Details Date Type Department Care Team (Late st Contact Info) Description 03/04/2019 Telephone [facility] [address] [place] [address] Rafa Rodriguez MD [address] OF PLASTIC SURGERY [place], [place] [id number] Social History Tobacco Use Types Packs/Day Years Used Date Smoking Tobacco: Former Cigarettes 1 - 2002 Smokeless Tobacco: Never Alcohol Use Standard Drinks/Week Comments No 0 (1 standard drink = 0.6 oz pur e alcohol) Comments No Sex and Gender Information Value Date Recorded Sex Assigned at Female 02/01/2022 8:42 AM CDT Legal Sex Female 4:31 AM PROPERTY VALUER Gender Identity Female 02/01/2022 8:42 AM CDT Sexual Orientation Straight 02/01/2022 8: 42 AM CDT documented as of this encounter Functional Status * Is person deaf or have serious hearing difficulty? Answer Date of Assessment Author No 11/23/2018 2:58 PM CDT Jono Barnes RN * Is person blind or have serious difficulty seeing? Answer Date of Assessment Author No 11/23/2018 2:58 PM CDT Jono Barnes RN * Does person have serious difficulty walking/climbing stairs? Answer Date of Assessment Author No 11/23/2018 2:58 PM CDT Jono Barnes RN * Does person have difficulty dressing/bathing? Answer Date of Assessment Author No 11/23/2018 2:58 PM CDT Jono Barnes RN * Does person have difficulty doing errands alone? Answer Date of Assessment Author No 11/23/2018 2:58 PM CDT Jono Barnes RN documented as of this encounter Mental Status * Does person have difficulty concentrating/remembering/making decisions? Answer Entry Date Author No 11/23/2018 2:58 PM CDT Jono Barnes RN documented in this encounter Miscellaneous Notes * Telephone Encounter - Brandi Balderas - 03/04/2019 1:45 PM CDT Per fax back from [employer] for cpt code [id number]. documented in this encounter Plan of Treatment Not on file documented as of this encounter Visit Diagnoses Not on filedocumented in this encounter Care Teams Research Worker Kitchen Relationship Specialty Start Date End Date Charles Evans MD PCP - General Family Medicine 07/28/18 documented as of this encounter
--- OUTSIDE RECORDS SUMMARY | 2025-02-04 15:22 | XMS_ITS | Encounter Summary ---
Author Organization [facility] Address [address] [place] [address] Phone Care Team Providers Care Transportation Maintenance Specialist Name Role Phone Charles Evans MD Primary Care Provider [phone] Pedro Soler MD Unavailable Martell Craig MD Unavailable [phone] Dick Godoy MD Unavailable [phone] Doug Glaser MD Unavailable [phone] Brii Babin APRN, CARE GIVER Unavailable Kacie Boyle APRN, [facility] Unavailable + [phone] Immanuel Coughlin MD Unavailable [phone] Florentin Diaz MD Primary Care Provider [phone] Reason for Visit * Reason Comments Medication Refill Encounter Details Date Type Department Care Team (Late st Contact Info) Description 11/01/2021 Refill [facility] [address] [place] [id number] Charles Evans MD #[address] [address] Medication Refill Social History Tobacco Use Types [...] Sex Assigned at Female 08/29/2023 3:02 PM ICD 9 CODER Legal Sex Female 8:57 PM CDT Gender Identity Female 08/29/2023 3:02 PM ICD 9 CODER Sexual Orientation Straight 08/29/2023 3: 02 PM ICD 9 CODER 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 Not on file Not on file documented as of this encounter Miscellaneous Notes * Telephone Encounter - Magaly Rivas MA - 11/06/2021 2:31 PM ICD 9 CODER Patient has appointment on 11/20/21 She is requesting an emergency refill of Lorazepam 0.5 mg tabs 9 CODER * Telephone Encounter - Susie Sky RMA - 11/02/2021 12:54 PM ICD 9 CODER scheduled 9 CODER * Telephone Encounter - Anne Marie Escamilla RN - 11/02/2021 10:06 AM CST Patient needs appointment with PCP 9 CODER * Telephone Encounter - Anne Marie Escamilla RN - 11/02/2021 8:55 AM CST PDMP 08/03/21 Medication failed the protocol, provider to review and approve the medication order if appropriate. Requested Prescriptions Pending Prescriptions Disp Refills LORazepam (ATIVAN) 0.5 MG Tablet [Pharmacy Med Name: LORAZEPAM 0.5MG TABLETS] 90 Tablet 0 Sig: TAKE 1 TABLET BY MOUTH EVERY 8 HOURS NEEDED FOR ANXIETY Not Delegated - Off Protocol Failed - 11/01/2021 11:31 PM Failed - This refill cannot be delegated Passed - Visit with relevant provider in past 12 months or upcoming 90 days Recent Visits Date Type Provider Dept 06/19/21 Office Visit [facility] 06/05/21 Office Visit Danial Galvan [facility]/19[facility]21 [facility] Telemedicine Muriel Hays APRN [facility] Showing recent visits within past 365 days and meeting all other requirements Future Appointments No visits were found meeting these conditions. Showing future appointments within next 90 days and meeting all other requirements 9 CODER documented in this encounter Plan of Treatment Not on file documented as of this encounter Visit Diagnoses Diagnosis Anxiety Anxiety state, unspecified documented in this encounter Additional Health Concerns Infection Onset Date Last Indicated Resolved Time COVID - 19 Confirmed 02/20/2022 02/20/2022 022 12:16 AM CDT C. difficile Rule-Out 03/19/2023 03/20/20232022 10:56 PM CDT COVID - 19 06/23/2023 06/23/2023 07/03/2023 12:1 6 AM CDT COVID - 19 11/20/2023 11/17/2023 11/20/2023 8:03 PM CDT Assessment Noted Time PHQ-9 Depression Total Score: 3 09/15/19 21 2:42 PM ICD 9 CODER documented as of this encounter Care Teams Transportation Maintenance Specialist Relationship Specialty Start Date End Date Charles Evans MD #[address] [address] PCP - General Family Medicine 06/24/18 01/12/25 Florentin Diaz MD [address] [place] [address] PCP - General Family Medicine 01/13/25 Pedro Soler MD #[address] [address] Consulting Physician Colon and Rectal Surgery 04/02/22 Martell Craig MD #2 [place] [phone] Consulting Physician Neurology 10/21/22 Dick Godoy MD #2 [place] [address] Consulting Physician Gastroenterology 08/15/22 Doug Glaser MD #[address] [phone] Consulting Physician General Surgery 05/07/24 Brii Babin APRN, CARE GIVER #2 [place] [address] Nurse Practitioner Advanced Practice Nurse 04/16/24 Kacie Boyle, TECHNICIAN AUTOMATIC, FURNACE TAPPER [address] [place] [address] Nurse Practitioner Advanced Practice Nurse 06/24/24 Immanuel Coughlin MD [address] [address] Consulting Physician General Surgery 07/08/24 documented as of this encounter
--- OUTSIDE RECORDS SUMMARY | 2025-02-04 15:22 | XMS_ITS | Encounter Summary ---
Author Organization [facility] Address [address] [facility] [place] [address] Phone Care Team Providers Care Depositing Machine Operator Name Role Phone Pedro Soler MD Unavailable Martell Craig MD Unavailable [phone] Dick Godoy MD Unavailable [phone] Doug Glaser MD Unavailable [phone] Brii Babin APRN, SETTLEMENT TECHNICIAN Unavailable Kacie Boyle APRN, [facility] Unavailable + [phone] Immanuel Coughlin MD Unavailable [phone] Florentin Diaz MD Primary Care Provider [phone] Reason for Visit * Reason Comments Medication Refill Encounter Details Date Type Department Care Team (Late st Contact Info) Description 01/13/2025 Refill [facility] [address] [place] [id number] Charles Evans MD [address] [address] Medication Refill Social History Tobacco Use Types Packs/Day Years Used Date Smoking Tobacco: Former Cigarettes 0.5 4 0 02/06/2002 - 02/06/2006 Smokeless Tobacco: Never Alcohol Use Standard Drinks/Week Comments No 0 (1 standard drink = 0.6 oz pur e alcohol) [facility] Utilities Answer Date Recorded In the past 12 months has th e electric, gas, oil, or water company [...] 07/03/2024 How often do you attend chur ch or yarsanism services? More than 4 times per year 07/03/2024 Do you belong to any clubs o r organizations such as zoroastrianism groups, unions, fraternal or athletic groups, or [...] Total Score - Questions 1-9 0 02/06 [facility] [place] of Occupat ional Health - Occupational Stress [...] or rent on time? Patient declined 11/17/19 Number of Places Lived in the Last Year Not on f ile 11/17/2023 In the last 12 months, was t here a time when you did not have a steady place to sleep or slept in a mcfp (including now)? Patient declined 11/17/2023 Housing Stability Vital Sign Answer Humza e Recorded In the last 12 months, was t here a time when you were not able to pay the mortgage or rent on time? No 07/03/2024 Number of Times Moved in the Last Year Not on fi le 07/03/2024 At any time in the past 12 m [facility], were you homeless or living in a mcfp (including now)? No 07/03/2024 Education Answer Date Recorded What is the highest level of school you have completed or the highest degree you have received? 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 file Not on file Not on file documented as of this encounter Miscellaneous Notes * Telephone Encounter - Anne Marie Escamilla RN - 01/13/2025 12:02 PM CDT PCP: Florentin Diaz MD documented in this encounter Plan of Treatment Not on file documented as of this encounter Visit Diagnoses Diagnosis Depression, unspecified depression type documented in this encounter Additional Health Concerns Assessment Noted Time PHQ-9 Depression Total Score: 0 02/20/20 11:03 AM CDT documented as of this encounter Care Teams Depositing Machine Operator Relationship Specialty Start Date End Date Florentin Diaz MD [address] [place] [address] PCP - General Family Medicine 01/13/25 Pedro Soler MD #[address] [address] Consulting Physician Colon and Rectal Surgery 04/02/22 Martell Craig MD #2 [place] [phone] Consulting Physician Neurology 10/21/22 Dick Godoy MD #2 [place] [address] Consulting Physician Gastroenterology 08/15/22 Doug Glaser MD #[address] [phone] Consulting Physician General Surgery 05/07/24 Brii Babin APRN, SETTLEMENT TECHNICIAN #[address] [place] [address] Nurse Practitioner Advanced Practice Nurse 04/16/24 Kacie Boyle APRN, HAZMAT CDL A DRIVER [address] [place] [address] Nurse Practitioner Advanced Practice Nurse 06/24/24 Immanuel Coughlin MD [address] [address] Consulting Physician General Surgery 07/08/24 documented as of this encounter
--- OUTSIDE RECORDS SUMMARY | 2025-02-04 15:22 | XMS_ITS | Encounter Summary ---
Author Organization [facility] Address [address] [facility] [place] [address] Care Team Providers Care Carbon Paper Coating Machine Setter Name Role Phone Charles Evans MD Primary Care Provider [phone] Encounter Details Date Type Department Care Team (Late st Contact Info) Description 09/13/2019 Telephone [facility] [address] [place] [address] Rafa Rodriguez MD [address] OF PLASTIC SURGERY [place], [place] [id number] Social History Tobacco Use Types Packs/Day Years Used Date Smoking Tobacco: Former Cigarettes - 2002 Smokeless Tobacco: Never Alcohol Use Standard Drinks/Week Comments No 0 (1 standard drink = 0.6 oz pur e alcohol) Comments No Sex and Gender Information Value Date Recorded Sex Assigned at Female 02/01/2022 8:42 AM CDT Legal Sex Female 4:31 AM SILO MAN Gender Identity Female 02/01/2022 8:42 AM CDT Sexual Orientation Straight 02/01/2022 8: 42 AM CDT documented as of this encounter Functional Status * Is person deaf or have serious hearing difficulty? Answer Date of Assessment Author No 03/29/2019 9:49 AM CDT Mary Denise RN * Is person blind or have serious difficulty seeing? Answer Date of Assessment Author No 03/29/2019 9:49 AM CDT Mary Dneise RN * Does person have serious difficulty walking/climbing stairs? Answer Date of Assessment Author No 03/29/2019 9:49 AM CDT Mary Denise RN * Does person have difficulty dressing/bathing? Answer Date of Assessment Author No 03/29/2019 9:49 AM CDT Mary Denise RN * Does person have difficulty doing errands alone? Answer Date of Assessment Author No 03/29/2019 9:49 AM YAYAT Mary Denise RN documented as of this encounter Mental Status * Does person have difficulty concentrating/remembering/making decisions? Answer Entry Date Author No 03/29/2019 9:49 AM CDT Mary Denise RN documented in this encounter Miscellaneous Notes * Telephone Encounter - Geno Mcclain - 09/13/2019 9:16 AM CST Per fax back from [employer], cpt code [id number] does not require prior authorization. Patient is scheduled for this procedure with Dr. Rodriguez on 09/30/19. Geno Calvin. [phone] MAN documented in this encounter Plan of Treatment Not on file documented as of this encounter Visit Diagnoses Not on filedocumented in this encounter Care Teams Carbon Paper Coating Machine Setter Relationship Specialty Start Date End Date Charles Evans MD PCP - General Family Medicine 07/28/18 documented as of this encounter
--- OUTSIDE RECORDS SUMMARY | 2025-02-04 15:22 | XMS_ITS | Encounter Summary ---
Author Organization [facility] Address [address] [facility] [place] [address] Phone Care Team Providers Care Fulfillment Coordinator Name Role Phone Charles Evans MD Primary Care Provider [phone] Pedro Soler MD Unavailable Martell Craig MD Unavailable [phone] Dick Godoy MD Unavailable [phone] Doug Glaser MD Unavailable [phone] Brii Babin APRN, ADVERTISING SALES ASSOCIATE Unavailable Kacie Boyle APRN, [facility] Unavailable + [phone] Immanuel Coughlin MD Unavailable [phone] Florentin Diaz MD Primary Care Provider [phone] Reason for Visit * Reason Onset Date Comments referral center 10/18/2020 Encounter Details Date Type Department Care Team (Late st Contact Info) Description 10/18/2020 Telephone [facility] [address] [place] [address] Charles Evans MD [address] [id number] referral center Social History Tobacco Use Types Packs/Day Years [...] Sex Assigned at Female 08/29/2023 3:02 PM INSTRUMENTATION AND CONTROLS TECHNICIAN Legal Sex Female 8:57 PM CDT Gender Identity Female 08/29/2023 3:02 PM INSTRUMENTATION AND CONTROLS TECHNICIAN Sexual Orientation Straight 08/29/2023 3: 02 PM INSTRUMENTATION AND CONTROLS TECHNICIAN 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 No / Unsure 10/19/2020 3:06 PM INSTRUMENTATION AND CONTROLS TECHNICIAN documented as of this encounter Miscellaneous Notes * Telephone Encounter - Geno Ibarra RN - 10/18/2020 3:50 PM INSTRUMENTATION AND CONTROLS TECHNICIAN Patient calling stating that she is returning a call. Per review of chart referral center was trying to contact her. Call warm transferred to referral center. RUMENTATION AND CONTROLS TECHNICIAN documented in this encounter Plan of Treatment Not on file documented as of this encounter Visit Diagnoses Not on filedocumented in this encounter Additional Health Concerns Infection Onset Date Last Indicated Resolved Time COVID - 19 08/24/2021 08/24/2021 09/13/2021 12:1 6 AM INSTRUMENTATION AND CONTROLS TECHNICIAN COVID - 19 Confirmed 08/24/2021 08/24/2021 022 12:16 AM INSTRUMENTATION AND CONTROLS TECHNICIAN COVID - 19 Confirmed 02/20/2022 02/20/2022 022 12:16 AM CDT C. difficile Rule-Out 03/19/2023 03/20/20232022 10:56 PM CDT COVID - 19 06/23/2023 06/23/2023 07/03/2023 12:1 6 AM CDT COVID - 19 11/20/2023 11/17/2023 11/20/2023 8:03 PM CDT Assessment Noted Time PHQ-9 Depression Total Score: 3 09/15/19 21 2:42 PM INSTRUMENTATION AND CONTROLS TECHNICIAN documented as of this encounter Care Teams Fulfillment Coordinator Relationship Specialty Start Date End Date Charles Evans MD #[address] [address] PCP - General Family Medicine 06/24/18 01/12/25 Florentin Diaz MD [address] [place] [address] PCP - General Family Medicine 01/13/25 Pedro Soler MD #[address] [address] Consulting Physician Colon and Rectal Surgery 04/02/22 Martell Craig MD #2 [place] [phone] Consulting Physician Neurology 10/21/22 Dick Godoy MD #2 [place] [address] Consulting Physician Gastroenterology 08/15/22 Doug Glaser MD #[address] [phone] Consulting Physician General Surgery 05/07/24 Brii Babin APRN, ADVERTISING SALES ASSOCIATE [address] [place] [address] Nurse Practitioner Advanced Practice Nurse 04/16/24 Kacie Boyle APRN, RURAL ELECTRIFICATION ENGINEER [address] [place] [address] Nurse Practitioner Advanced Practice Nurse 06/24/24 Immanuel Coughlin MD [address] [address] Consulting Physician General Surgery 07/08/24 documented as of this encounter
--- OUTSIDE RECORDS SUMMARY | 2025-02-04 15:22 | XMS_ITS | Referral Summary ---
Author Organization [facility] Address [address] [place] [address] Care Team Providers Care Court Officer Name Role Phone Florentin Diaz MD Primary Care Provider [phone] Josephine Weiss OT Unavailable Unavailab le Encounters Date Type Department Care Team Description 02/04/2025 Telephone [facility] [address] [address] Florentin Diaz MD Symptom Based Call 02/04/2025 Results Follow-Up [facility] Primary Care at [address] [place] [phone] Florentin Diaz MD US Breast Left Limited 02/04/2025 Orders Only [facility] [address] [address] Tyree Wright MD 01/18/2025 Telephone [facility] [address] [address] Florentin Diaz MD Additional Services Or Orders 01/03/2025 Telephone [facility] Orthopedic and Sports Medicine [address] [place] [phone] Randolph Victoria PA 12/10/2024 Orders Only [facility] Orthopedic and Sports Medicine [address] [place] [phone] Randolph Victoria PA Primary osteoarthritis of first carpometacarpal joint of left hand (Primary Dx); Orthopedic aftercare 12/09/2024 1:15 PM CDT - 12/09/2024 11:59 PM CDT Hospital Encounter [facility] Sports Medicine [address] [place] [address] [address] [place] [phone] Discharge Disposition: Discharge to home or self care 12/09/2024 1:00 PM CDT Office Visit [facility] Medicine [address] [place] [address] [address] [place] [phone] Randolph Victoria PA Primary osteoarthritis of first carpometacarpal joint of left hand (Primary Dx); Orthopedic aftercare 11/26/2024 Results Follow-Up [facility] Primary Care at [address] [place] [phone] Danay Alvarado NP Dexa Axial Skeleton Bone Density 1 or 2 Site 11/18/2024 2:15 PM CDT - 11/18/2024 11:59 PM CDT Hospital Encounter [facility] [address] [place] [address] Osteoporosis screening; Post-menopause Discharge Disposition: Discharge to home or self care 11/12/2024 1:45 PM MICROARRAY OPERATIONS VICE PRESIDENT Therapy [facility] Occupational Therapy [address] [place] [address] Josephine Weiss OT Primary osteoarthritis of first carpometacarpal joint of left hand (Primary Dx); De Quervain's tenosynovitis; 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 from Last 3 Months Allergies Active Allergy Reactions Criticality Noted Date [...] 10/20/2024 Assessment & Plan (10/20/2024 10:19 PM MICROARRAY OPERATIONS VICE PRESIDENT): Stable, well controlled; no major issues Continue [...] Follow up in: I recommend calling the music historian as we discussed, to set up an [...] months Assessment & Plan (10/20/2024 10:19 PM MICROARRAY OPERATIONS VICE PRESIDENT): Stable, well controlled; status post fundoplication; improvement [...] 07/19/2015 Assessment & Plan (10/20/2024 10:19 PM MICROARRAY OPERATIONS VICE PRESIDENT): Well controlled; no significant anxiety at this time; good control with current medications and no significant side effects Continue citalopram 40 mg daily, bupropion 300 mg daily Depression 07/19/2015 Hypothyroidism 07/19/2015 Assessment & Plan (10/20/2024 10:18 PM MICROARRAY OPERATIONS VICE PRESIDENT): Stable, well controlled; no major changes to [...] including calling Suicide Hotline ( ) or 911. Follow up in as directed with Psychologist, Counselor and PCP RA (rheumatoid arthritis) 07/19/2015 Overview (12/08/2020): Patient reports that she has no symptoms at this time Last Assessment & Plan: Follow up as directed by your primary care provider or specialist Immunizations Immunization Administration Dates Next Due Influenza, Quadrivalent, Split, Intramuscular Influenza, Quadrivalent, Spl it, Preservative Free, Intramuscular 08/07/2015,08/07/2015 Influenza, Trivalent, IM (MDV) 05/25/2013 Pneumococcal Polysaccharide PPV23 08/08/2008 Td, adsorbed 10/29/2022 Tdap 05/20/2013 Social History Tobacco Use Types Packs/Day Years [...] on file Legal Sex Female 6:19 PM MICROARRAY OPERATIONS VICE PRESIDENT Gender Identity Female 05/04/2021 12:55 PM CDT Sexual Orientation Straight 05/04/2021 12 :55 PM CDT Last Filed Vital Signs Vital Sign Reading Time Taken Comments Blood Pressure 124/77 12/09/2024 1:02 PM CDT Pulse 71 12/09/2024 1:02 PM CDT Temperature 36.7 C (98 F) 10/20/2024 10:52 AM MICROARRAY OPERATIONS VICE PRESIDENT Respiratory Rate 18 10/20/2024 10:52 AM MICROARRAY OPERATIONS VICE PRESIDENT Oxygen Saturation 99% 10/20/2024 10:52 AM MICROARRAY OPERATIONS VICE PRESIDENT Inhaled Oxygen Concentration - - Weight 62.6 kg (138 lb) 12/09/2024 1:02 PM CDT Height 157.5 cm (5' 2) 12/09/2024 1:02 PM CDT Body Mass Index 25.24 12/09/2024 1:02 PM CDT Plan of Treatment Not on file Medical Devices Implanted Type Area Transmission Engineer Device Identifier Shelf Expiration Date Model / Serial / Lot Violet [place] Spine [id number] G2 Cage Spinal Raymond 7 D L12mm X W14mm X H7mm Sterile Latex Free Cervical Interbody System - [id number] Implanted:Qty: 1 on 02/01/2021 by Herminio Barbosa MD at [facility] N/A: Spine Cervical Virginie Spine [id number] 02/20/2025 [id number] / / [id number] Medtronic Spinal Graft [id number] Putty Filler 1cc Bone Void Demineralized Bone Matrix - [id number] - [id number] Implanted:Qty: 1 on 02/01/2021 by Herminio Barbosa MD at [facility] N/A: Spine Cervical Medtronic Inc 12/25/2023 [id number] / [id number] / Violet Hill Spine [id number] G2 Cage Spinal Raymond 7 D L12mm X W14mm X H6mm Sterile Latex Free Cervical Interbody System - [id number] Implanted:Qty: 1 on 02/01/2021 by Herminio Barbosa MD at [facility] N/A: Spine Cervical Violet Hill Spine 04/18/2025 [id number] / / [id number] Violet Hill Spine [id number] G2 Cage Spinal Raymond 7 D L12mm X W14mm X H6mm Sterile Latex Free Cervical Interbody System - [id number] Implanted:Qty: 1 on 02/01/2021 by Herminio Barbosa MD at [facility] N/A: Spine Cervical Virginie Spine [id number] 12/20/2024 [id number] / / [id number] K2m Llc [id number] Od4 Mm L12 Mm Self Tapping Spine Screw Bone Dark Blue - [id number] Implanted:Qty: 1 on 02/01/2021 by Herminio Barbosa MD at [facility] N/A: Spine Cervical Violet Hill Spine [id number] / / [id number] Llc [id number] Od4 Mm L14 Mm Self Tap Spine Screw Bone Magenta - [id number] Implanted:Qty: 9 on 02/01/2021 by Herminio Barbosa MD at [facility] N/A: Spine Cervical Violet Hill Spine [id number] / / Violet Hill Spine [id number] 68mm 4 Level Translational Spine Cervical Plate Bone - [id number] Implanted:Qty: 1 on 02/01/2021 by Herminio Barbosa MD at [facility] N/A: Spine Cervical Violet Hill Spine [id number] / / Violet Hill Spine [id number] G2 Cage Spinal Raymond 7 D L12mm X W14mm X H6mm Sterile Latex Free Cervical Interbody System - [id number] Implanted:Qty: 1 on 02/01/2021 by Herminio Barbosa MD at [facility] N/A: Spine Cervical Violet Hill Spine [id number] 09/05/2024 [id number] / / [id number] Arthrex Inc Dx Swivelock Sl 3.5mm 8.5mm Fork Eyelet [place] Suture Sterile Ar-8978p - [id number] Implanted:Qty: 1 on 07/20/2024 by Tommy Cuba MD at [facility] Left: Wrist Arthrex Inc 11/05/2028 AR-8978P / / [id number] Arthrex Inc Dx Swivelock Sl 3.5mm 8.5mm Fork Eyelet [place]isbury Suture Sterile Ar-8978p - [id number] Implanted:Qty: 1 on 07/20/2024 by Tommy Cuba MD at [facility] Left: Wrist Arthrex Inc 02/05/2029 AR-8978P / / [id number] Arthrex Inc Arthrex Dx Fibertak Needle [place] Suture Sterile Latex Free Ar-8990st - [id number] Implanted:Qty: 1 on 07/20/2024 by Tommy Cuba MD at [facility] Left: Wrist Arthrex Inc 10/08/2028 AR-8990ST / / [id number] Procedures Procedure Name Priority Date/Time Associated Diagnosis [...] HEPATITIS C ANTIBODY Routine 10/20/2024 12:05 PM MICROARRAY OPERATIONS VICE PRESIDENT Encounter for hepatitis C screening test for [...] thumb noted compared to prior views. Randolph SALDANA IMG XR PROCEDURES Shannen l Result * Dexa Axial Skeleton Bone Density 1 or 2 Site (11/18/2024 2:33 PM CDT) Anatomical Region Laterality Modality Body N/A Other 11/20/2024 9:07 AM CDT Narrative 11/20/2024 9:07 AM CDT EXAM DESCRIPTION: DEXA AXIAL SKELETON BONE DENSITY 1 OR MORE SITES REASON FOR STUDY: 64 y/o year old F with given history of: osteoporosis screening Screening Transmission Engineer/Model: Fromography (S/N [id number]) Facility LSC value of 0.022 for the [...] Charles Garibay M.D. MF: DILAN Report ID: [id number] Reading Location: [place] [address] Procedure Note Charles Garibay MD - 11/20/2024 EXAM DESCRIPTION: DEXA AXIAL SKELETON BONE DENSITY 1 OR MORE SITES REASON FOR STUDY: 64 y/o year old F with given history of:osteoporosis screening Screening Transmission Engineer/Model: Fromography (S/N [id number]) Facility LSC value of 0.022 for the [...] Charles Garibay M.D. MF: DILAN Report ID: [id number] Reading Location: [place] [address] Florentin Diaz MD [facility] DXA PROCEDURES Final Result * Hepatitis C antibody Blood (10/20/2024 12:05 PM MICROARRAY OPERATIONS VICE PRESIDENT) Hep C Ab Nonreactive Nonreactive Comment: Interpretive [...] last revised on 2019. Testing performed by: [facility], [address] [place] [address]., [id number] Blood 10/20/2024 12:0 5 PM MICROARRAY OPERATIONS VICE PRESIDENT 10/20/2024 5:29 PM MICROARRAY OPERATIONS VICE PRESIDENT us Florentin Diaz MD LAB MICROBIOLOGY - GENERA L ORDERABLES Final Result [facility] Department of Laboratories [place] [id number] from Last 3 Months or Most Recently Relevant to Health Maintenance Insurance MEDICARE [facility] Address: [address] [address] [facility] [place] MEDICARE PHYSICIANS [facility] [place] Advance Directives For more information, please contact: [phone] Documents on File Type Date Recorded Patient Promotion Writer Expl anation ADVANCE DIRECTIVE 08/27/2024 9:25 AM MORRIS NG WILL ADVANCE DIRECTIVE 08/26/2024 2:03 PM MORRIS NG WILL ADVANCE DIRECTIVE 08/26/2024 1:56 PM ALEX R OF OCEANOGRAPHER GEOLOGICAL-MEDICAL ADVANCE DIRECTIVE 08/26/2024 1:56 PM ALEX R OF OCEANOGRAPHER GEOLOGICAL-MEDICAL * Full Code (Latest Code Status on File) Date Activated Date Inactivated Comments 08/26/2024 1:24 PM 08/27/2024 9:05 PM * Full Code Date Activated Date Inactivated Comments 08/26/2024 1:24 PM 08/26/2024 1:24 PM * Full Code Date Activated Date Inactivated Comments 02/01/2021 9:43 PM 02/02/2021 6:[address] Officer Relationship Specialty Start Date End Date Florentin Diaz MD [address] [place] [address] PCP - General Family Medicine 10/20/24 Josephine Weiss OT Occupational Therapist Occupational Therapy 10/25/24
--- OUTSIDE RECORDS SUMMARY | 2025-02-04 15:22 | XMS_ITS | Encounter Summary ---
Author Organization [facility] Address [address] [facility] [facility] [address] [facility] [place] [address] Phone Care Team Providers Care Garbage Truck Driver Name Role Phone Pedro Soler MD Unavailable Martell Craig MD Unavailable [phone] Dick Godoy MD Unavailable [phone] Doug Glaser MD Unavailable [phone] Brii Babin APRN, RURAL CARRIER ASSOCIATE Unavailable Kacie Boyle APRN, [facility] Unavailable + [phone] Immanuel Coughlin MD Unavailable [phone] Florentin Diaz MD Primary Care Provider [phone] Reason for Visit * Radiology Services (Routine) - Closed Specialty Diagnoses / Procedures Referred By Contac t Referred To Contact Radiology Diagnoses Abnormal mammography Procedures TERENCE US BREAST LIMITED RT TERENCE US BREAST LIMITED BILLY Florentin Diaz MD [address] [place] [address] Phone: tel: fax: Referral ID Status Reason Start Date Expiration Date Visits Re quested Visits Authorized [id number] Closed 01/18/2025 1 1 Encounter Details Date Type Department Care Team (Latest Contact Info) Description 02/03/2025 1:49 PM CDT - 02/03/2025 11:59 PM CDT Hospital Encounter [facility] Ultrasound [address] [place] [id number] Florentin Diaz MD [address] [place] [address] Arrived Discharge Disposition: Discharged to home or Selfcare Social History Tobacco Use Types Packs/Day Years Used Date Smoking Tobacco: Former Cigarettes 0.5 4 0 02/06/2002 - 02/06/2006 Smokeless Tobacco: Never Alcohol Use Standard Drinks/Week Comments No 0 (1 standard drink = 0.6 oz pur e alcohol) [facility] Utilities Answer Date Recorded In the [...] often do you attend chur ch or samaritan services? More than 4 times per year 07/03/2024 Do you belong to any clubs o r organizations such as anglican groups, unions, fraternal or athletic groups, or [...] Total Score - Questions 1-9 0 02/06 [facility] - Occupational [...] money to buy more. Never true 07/03/20 Within the past 12 months, t he [...] to sleep or slept in a senior living (including now)? Patient declined 11/17/2023 Housing Stability Vital Sign Answer Humza e Recorded In the last 12 months, was t here a time when you were not able to pay the mortgage or rent on time? No 07/03/2024 Number of Times Moved in the Last Year Not on fi le 07/03/2024 At any time in the past 12 m [facility], were you homeless or living in a senior living (including now)? No 07/03/2024 Education Answer Date Recorded What is the highest level of school you have completed or the highest degree you have received? Some college, no degree 05/09/2020 Sexually Active Control Partners Comments Yes Male Comments No Sex and Gender Information Value Date Recorded Sex Assigned at Female 08/29/2023 3:02 PM NURSING CARE PARTNER Legal Sex Female 8:57 PM CDT Gender Identity Female 08/29/2023 3:02 PM NURSING CARE PARTNER Sexual Orientation Straight 08/29/2023 3: 02 PM NURSING CARE PARTNER Occupation Industry Job Start Date Job End Date Mill Was[employer] Not on file Not on file Not on file documented as of this encounter Medications at Time of Discharge alendronate (FOSAMAX) 70 MG Tablet Take 70 mg by mouth once a week. 11/26/2024 amitriptyline (ELAVIL) 10 MG Tablet TAKE 1 TABLET BY MOUTH EVERY NIGHT 90 Tablet 1 01/26/2024 buPROPion (WELLBUTRIN) 300 MG TABLET SR 24 HR XL tabletIndications :Depression, unspecified depression type Take 1 Tablet by mouth every morning. 90 Tablet 3 02/20/2024 CALCIUM CARBONATE-VITAMIN D PO Take by mouth. citalopram (CeleXA) 40 MG TabletIndications :Depression, unspecified depression type Take 1 Tablet by mouth daily. 90 Tablet 2 02/20/2024 famotidine (PEPCID) 20 MG TabletIndications :RUQ pain,Gastroesopha geal reflux disease, unspecified whether esophagitis present Take 1 Tablet by mouth every evening. 90 Tablet 04/16/2024 ondansetron (ZOFRAN) 8 MG Tablet Take 1 tablet every 8 hours by oral route as needed. pantoprazole (PROTONIX) 40 MG Tablet Delayed ResponseIndicatio ns:Gastroesophage al reflux disease with esophagitis without hemorrhage Take 1 Tablet by mouth daily. 90 Tablet 1 09/22/2023 SUMAtriptan (IMITREX) 100 MG TabletIndications :Chronic migraine w/o aura w/o status migrainosus, not intractable Take 1 Tablet by mouth daily as needed for Migraine. Use as directed. May repeat dose in 2 hours if headache recurs. 9 Tablet 3 06/24/2024 Topiramate (Topamax) 50 MG TabletIndications :Chronic migraine w/o aura w/o status migrainosus, not intractable Take 1 Tablet by mouth 2 times daily. 60 Tablet 5 06/24/2024 valACYclovir (VALTREX) 1 GM Tablet Take 1 Tablet by mouth daily. 90 Tablet 3 01/29/2024 documented as of this encounter Plan of Treatment Not on file documented as of this encounter Procedures Procedure Name Priority Date/Time Associated Diagnosis Comments TERENCE US BREAST LIMITED RT Routine 02/03/2025 2:32 PM CDT Abnormal mammography documented in this encounter Results * TERENCE US BREAST LIMITED RT (02/03/2025 2:32 PM CDT) Anatomical Region Laterality Modality breast Right Ultrasound 02/03/2025 1:07 PM CDT Narrative 02/03/2025 2:50 PM CDT - TERENCE DIAG BILATERAL DIGITAL W CAD W PUJA - TREENCE US BREAST LIMITED RT BILATERAL DIGITAL DIAGNOSTIC [...] exams dated: 04/25/2022, 01/17/2020, and 01/11/2019 [facility]. BREAST TISSUE:The breasts are [...] by: Jose Eduardo Yepez M.D. ll/:02/03/2025 14:35:24 Chef Passenger Vessel(s): RT Dennis(R)(M), [facility]; Emma García, [facility] letter sent: Normal Exam Reading location: [facility] OVERALL STUDY BIRADS: Category 1: Negative Procedure Note Jose Eduardo Yepez MD - 02/03/2025 - TERENCE DIAG BILATERAL DIGITAL W CAD W PUJA - TERENCE US BREAST LIMITED RT BILATERAL DIGITAL DIAGNOSTIC MAMMOGRAM 3D/2D WITH CAD WITH MEDIOLATERAL OBLIQUE CRANIOCAUDAL AND RIGHT ULTRASOUND: 02/03/2025 The study was acquired using digital technology and interpreted from soft copy. Current study was also evaluated with Kast version 7.2. 2D digital mammographic views, as well as 3D digital tomosynthesis were performed in the CC and MLO projections. CLINICAL: Diagnostic study. Patient reports right lump in lateral breast for about 6 months with tenderness to palpation. No personal history of cancer. No family history of breast cancer. COMPARISONS: Comparison is made to exams dated: 04/25/2022, 01/17/2020, and 01/11/2019 [facility]. BREAST TISSUE:The breasts are heterogeneously dense, which [...] by: Jose Eduardo Yepez M.D. ll/:02/03/2025 14:35:24 Chef Passenger Vessel(s): RT Dennis(R)(M), [facility]; Emma García, [facility] letter sent: Normal Exam Reading location: [facility] OVERALL STUDY BIRADS: Category 1: Negative us Florentin Diaz MD IMG MAMMO ORDERABLES Final Resu lt documented in this encounter Visit Diagnoses Diagnosis Abnormal mammography Abnormal mammogram, unspecified documented in this encounter Additional Health Concerns Assessment Noted Time PHQ-9 Depression Total Score: 0 02/20/20 24 11:03 AM CDT documented as of this encounter Care Teams Garbage Truck Driver Relationship Specialty Start Date End Date Florentin Diaz MD [address] [place] [address] PCP - General Family Medicine 01/13/25 Pedro Soler MD [address] [address] Consulting Physician Colon and Rectal Surgery 04/02/22 Martell Craig MD [address] [place] [address] Consulting Physician Neurology 10/21/22 Dick Godoy MD [address] [place] [address] Consulting Physician Gastroenterology 08/15/22 Doug Glaser MD [address] [phone] Consulting Physician General Surgery 05/07/24 Brii Babin APRN, RURAL CARRIER ASSOCIATE [address] [place] [address] Nurse Practitioner Advanced Practice Nurse 04/16/24 Kacie Boyle APRN, POST TRONIC MACHINE OPERATOR [address] [place] [address] Nurse Practitioner Advanced Practice Nurse 06/24/24 Immanuel Coughlin MD [address] [facility] [facility] [address] [address] [address] Consulting Physician General Surgery 07/08/24 documented as of this encounter
--- OUTSIDE RECORDS SUMMARY | 2025-02-04 15:22 | XMS_ITS | Encounter Summary ---
Author Organization [facility] Address [address] [place] [address] Phone Care Team Providers Care Chamber Walker Name Role Phone Pedro Soler MD Unavailable Martell Craig MD Unavailable [phone] Dick Godoy MD Unavailable [phone] Doug Glaser MD Unavailable [phone] Brii Babin APRN, CHEMICAL PROCESS ENGINEER Unavailable Kacie Boyle APRN, [facility] Unavailable + [phone] Immanuel Coughlin MD Unavailable [phone] Florentin Diaz MD Primary Care Provider [phone] Reason for Referral * Radiology Services (Routine) - Closed Specialty Diagnoses / Procedures Referred By Contac t Referred To Contact Radiology Diagnoses Abnormal mammography Procedures TERENCE DIAG BILATERAL DIGITAL W CAD W Florentin Arias MD [address] [place] [address] Phone: tel: fax: Referral ID Status Reason Start Date Expiration Date Visits Re quested Visits Authorized [id number] Closed 01/18/2025 1 1 Reason for Visit * Radiology Services (Routine) - Closed Specialty Diagnoses / Procedures Referred By Contac t Referred To Contact Radiology Diagnoses Abnormal mammography Procedures TERENCE DIAG BILATERAL DIGITAL W CAD W Florentin Arias MD [address] [place] [address] Phone: tel: fax: Referral ID Status Reason Start Date Expiration Date Visits Re quested Visits Authorized [id number] Closed 01/18/2025 1 1 Encounter Details Date Type Department Care Team (Latest Contact Info) Description 02/03/2025 12:53 PM CDT - 02/03/2025 1:48 PM CDT Hospital Encounter [facility] Mammography [address] [place] [address] Florentin Diaz MD [address] [place] [address] Arrived Discharge Disposition: Discharged to home or Selfcare Social History Tobacco Use Types Packs/Day Years Used Date Smoking Tobacco: Former Cigarettes 0.5 4 0 02/06/2002 - 02/06/2006 Smokeless Tobacco: Never Alcohol Use Standard Drinks/Week Comments No 0 (1 standard drink = 0.6 oz pur e alcohol) [facility] Utilities Answer Date Recorded In the [...] often do you attend chur ch or zoroastrianism services? More than 4 times per year 07/03/2024 Do you belong to any clubs o r organizations such as lutheran groups, unions, fraternal or athletic groups, or [...] Total Score - Questions 1-9 0 02/06 [facility] of Occupat ional Health - Occupational Stress [...] place to sleep or slept in a custodial (including now)? Patient declined 11/17/2023 Housing Stability Vital Sign Answer Humza e Recorded In the last 12 months, was t here a time when you were not able to pay the mortgage or rent on time? No 07/03/2024 Number of Times Moved in the Last Year Not on fi le 07/03/2024 At any time in the past 12 [facility], were you homeless or living in a custodial (including now)? No 07/03/2024 Education Answer Date Recorded What is the highest level of school you have completed or the highest degree you have received? 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 Not on file Not [...] Name Priority Date/Time Associated Diagnosis Comments TERENCE DIAG BILATERAL DIGITAL W CAD W PUJA Routine 02/03/2025 1:59 PM CDT Abnormal mammography documented in this encounter Results * TERENCE DIAG BILATERAL DIGITAL W CAD W PUJA (02/03/2025 1:59 PM CDT) Anatomical Region Laterality Modality breast Bilateral Mammography 02/03/2025 1:07 PM CDT Narrative 02/03/2025 2:50 PM CDT - TERENCE DIAG BILATERAL DIGITAL W CAD W PUJA - [facility] US BREAST LIMITED RT BILATERAL DIGITAL DIAGNOSTIC [...] to exams dated: 04/25/2022, 01/17/2020, and 01/11/2019 [facility]. BREAST TISSUE:The breasts are heterogeneously dense, [...] by: Jose Eduardo Yepez M.D. ll/:02/03/2025 14:35:24 Fourth Mate(s): Lyudmila Salinas, RT(R)(M), [facility]; Emma García, [facility] letter sent: Normal Exam Reading location: [facility] OVERALL STUDY BIRADS: Category 1: Negative Procedure [...] to exams dated: 04/25/2022, 01/17/2020, and 01/11/2019 [facility]. BREAST TISSUE:The breasts are heterogeneously dense, [...] by: Jose Eduardo Yepez M.D. ll/:02/03/2025 14:35:24 Fourth Mate(s): RT Dennis(R)(M), [facility]; Emma García, [facility]: Normal Exam Reading location: [facility] OVERALL STUDY BIRADS: Category 1: Negative us Florentin Diaz MD IMG MAMMO ORDERABLES Final Resu lt documented in this encounter Visit Diagnoses Diagnosis Abnormal mammography Abnormal mammogram, unspecified documented in this encounter Additional Health Concerns Assessment Noted Time PHQ-9 Depression Total Score: 0 02/20/20 24 11:03 AM CDT documented as of this encounter Care Teams Chamber Walker Relationship Specialty Start Date End Date Florentin Diaz MD [address] [place] [address] PCP - General Family Medicine 01/13/25 Pedro Soler MD [address] [address] Consulting Physician Colon and Rectal Surgery 04/02/22 Martell Craig MD [address] [place] [address] Consulting Physician Neurology 10/21/22 Dick Godoy MD [address] [place] [address] Consulting Physician Gastroenterology 08/15/22 Doug Glaser MD [address]2 [facility] [address] [place] [address] Consulting Physician General Surgery 05/07/24 Brii Babin APRN, CHEMICAL PROCESS ENGINEER [address] [place] [address] Nurse Practitioner Advanced Practice Nurse 04/16/24 Kacie Boyle APRN, [facility] [address] [place] [address] Nurse Practitioner Advanced Practice Nurse 06/24/24 Immanuel Coughlin MD [address] [facility] [address] [place] [address] Consulting Physician General Surgery 07/08/24 documented as of this encounter
--- OUTSIDE RECORDS SUMMARY | 2025-02-04 15:22 | XMS_ITS | Encounter Summary ---
Author Organization [facility] Address [address] [facility] [place] [address] Phone Care Team Providers Care Fifth Hand Name Role Phone Pedro Soler MD Unavailable Martell Craig MD Unavailable [phone] Dick Godoy MD Unavailable [phone] Doug Glaser MD Unavailable [phone] Brii Babin APRN, HOUSING GRANT ANALYST Unavailable Kacie Boyle APRN, [facility] Unavailable + [phone] Immanuel Couglhin MD Unavailable [phone] Florentin Diaz MD Primary Care Provider [phone] Encounter Details Date Type Department Care Team (Late st Contact Info) Description 01/13/2025 [facility] [address] [place] [address] Charles Evans MD [address] [address] Social History Tobacco Use Types Packs/Day Years Used Date Smoking Tobacco: Former Cigarettes 0.5 4 0 02/06/2002 - 02/06/2006 Smokeless Tobacco: Never Alcohol Use Standard Drinks/Week Comments No 0 (1 standard drink = 0.6 oz pur e alcohol) [facility] Utilities Answer Date Recorded In the [...] often do you attend chur ch or episcopalian services? More than 4 times per year 07/03/2024 Do you belong to any clubs o r organizations such as worship groups, unions, fraternal or athletic groups, or [...] Total Score - Questions 1-9 0 02/06 [facility] of Occupat ional Health - Occupational Stress [...] place to sleep or slept in a detention (including now)? Patient declined 11/17/2023 Housing Stability Vital Sign Answer Humza e Recorded In the last 12 months, was t here a time when you were not able to pay the mortgage or rent on time? No 07/03/2024 Number of Times Moved in the Last Year Not on fi le 07/03/2024 At any time in the past 12 m [facility], were you homeless or living in a detention (including now)? No 07/03/2024 Education Answer Date Recorded What is the highest level of school you have completed or the highest degree you have received? 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 Not on file Not on file Not on file documented as of this encounter Plan of Treatment Not on file documented as of this encounter Visit Diagnoses Not on filedocumented in this encounter Additional Health Concerns Assessment Noted Time PHQ-9 Depression Total Score: 0 02/20/20 24 11:03 AM CDT documented as of this encounter Care Teams Fifth Hand Relationship Specialty Start Date End Date Florentin Diaz MD [address] [place] [address] PCP - General Family Medicine 01/13/25 Pedro Soler MD [address] [address] Consulting Physician Colon and Rectal Surgery 04/02/22 Martell Craig MD [address]2 [place] [address] Consulting Physician Neurology 10/21/22 Dick Godoy MD #[address] [place] [address] Consulting Physician Gastroenterology 08/15/22 Doug Glaser MD #[address] [address] Consulting Physician General Surgery 05/07/24 Brii Babin APRN, HOUSING GRANT ANALYST [address]2 [place] [address] Nurse Practitioner Advanced Practice Nurse 04/16/24 Kacie Boyle APRN, NEON TUBE BENDER [address] [place] [address] Nurse Practitioner Advanced Practice Nurse 06/24/24 Immanuel Coughlin MD [address] [address] Consulting Physician General Surgery 07/08/24 documented as of this encounter
--- OUTSIDE RECORDS SUMMARY | 2025-02-04 15:22 | XMS_ITS | Clinical Summary ---
Author Organization [facility] [employer] [facility] Address [address] [place] [address] Care Team Providers Care Maintenance Service Dispatcher Name Role Phone Charles Evans MD Primary Care Provider [phone] Source Comments [facility] [employer] [facility],non-owned Affiliates and Associated Physician Practices is amultiple site organization consisting of ambulatory clinics and hospital sitesin [place], [place], [place] and [place]. This disclosure is being madepursuant to the Care Everywhere program and may not contain all information available regarding this patient. Last updated 18.[facility] [employer] [facility] Allergies Active Allergy Reactions Criticality Noted Date Comments Neomycin Rash Medium Tea Tree Oil Other 04/09/2019 Blisters Medications * Be aware that medications may not be up to date on this document. Alwaysverify current medications with the patient. buPROPion XL 24hr (WELLBUTRIN-XL) 300 MG tablet Take 300 mg by mouth once daily Active Probiotic Product ([facility] PROBIOTIC) CAPS Take 1 capsule by mouth once daily Active LORazepam (ATIVAN) 0.5 MG tablet Take 0.5 mg by mouth every 8 hours as needed For anxiety. 11/06/2021 Active citalopram (CELEXA) 40 MG tablet Take 40 mg by mouth once daily 11/17/2021 Active pantoprazole (PROTONIX) 40 MG packet Take 40 mg by mouth once daily Active Multiple Minerals-Vitami ns (CALCIUM & VIT D3 BONE HEALTH PO) Active CALCIUM 600+D3 600-800 MG-UNIT tablet Take 1 tablet by mouth once daily 12/31/2021 Active Hospital, Clinic, or Other Facility Administered Medication Ordered Dose Route Frequency Start Date End Date Status gabapentin (NEURONTIN) tablet 300 mgIndications:Right hand pain 300 mg PO 3 TIMES DAILY PRN 02/23/2019 Active Active Problems Problem Noted Date Diagnosed Date COVID-19 08/27/2021 Fusion of spine of cervical region 02/01/2021 Urge incontinence of urine 12/03/2019 Overview (12/28/2021): Last Assessment & Plan: Condition: stable Follow up as directed by your primary care provider or specialist Last Assessment & Plan: Condition: stable Follow up as directed by your primary care provider or specialist Memory difficulty 12/03/2019 Overview (12/28/2021): Patient reports new memory problems and that PCP is aware. Is supposed to follow up with neurology, but the appointment keeps getting pushed back. Last Assessment & Plan: Condition: new. Follow up with neurology Patient reports new memory problems and that PCP is aware. Is supposed to follow up with neurology, but the appointment keeps getting pushed back. Last Assessment & Plan: Condition: new. Follow up with neurology Former smoker, stopped smoking many years ago Overview (12/28/2021): Last Assessment & Plan: No longer smokes Last Assessment & Plan: No longer smokes Body mass index (BMI) of 25.0-25.9 in adult 11/07 Overview (12/28/2021): Last Assessment & Plan: Condition: stable Educated [...] and BMI. Follow up in: one year Last Assessment & Plan: Condition: stable Educated [...] and BMI. Follow up in: one year Seborrheic keratoses, inflamed 04/10/2019 Neoplasm of uncertain behavior of skin 9 LSC (lichen simplex chronicus) 04/10/2019 Other specified dermatitis 04/10/2019 Solar lentiginosis 04/10/2019 Seborrheic keratosis 04/10/2019 CMC arthritis 02/22/2019 Chronic constipation 10/29/2016 Overview (12/28/2021): Last Assessment & Plan: Condition: stable Follow up in: three months Last Assessment & Plan: Condition: stable Follow up in: three months Mixed anxiety and depressive disorder 10/23/2016 Overview (12/28/2021): Last Assessment & Plan: Condition: stable Take medications as ordered by Provider; notify [...] Hotline ( ) or 911. Follow up as directed with Psychologist, Counselor and PCP Gastroesophageal reflux disease 04/11/2016 Overview (12/28/2021): Last Assessment & Plan: Condition: stable Reviewed use of antacid medication and/or diet modifications of decreasing caffeine, spicy foods, chocolate, and avoiding alcohol, tobacco, NSAIDs, and reducing citrus acids. Follow up in: three months Last Assessment & Plan: Condition: stable Reviewed use of antacid medication and/or diet modifications of decreasing caffeine, spicy foods, chocolate, and avoiding alcohol, tobacco, NSAIDs, and reducing citrus acids. Follow up in: three months DNS (deviated nasal septum) 04/11/2016 Overview (12/28/2021): Last Assessment & Plan: Condition: stable Follow up as directed by your primary care provider or specialist Last Assessment & Plan: Condition: stable Follow up as directed by your primary care provider or specialist History of colon polyps 08/07/2015 Overview (12/28/2021): Last Assessment & Plan: Condition: Most recent colonoscopy shows no colon polyps. Recommend to follow up with regular colon cancer screenings as recommended by your PCP or specialist. Last Assessment & Plan: Condition: Most recent colonoscopy shows no colon polyps. Recommend to follow up with regular colon cancer screenings as recommended by your PCP or specialist. RA (rheumatoid arthritis) 07/19/2015 Overview (12/28/2021): Patient reports that she has no symptoms at this time Last Assessment & Plan: Follow up as directed by your primary care provider or specialist Patient reports that she has no symptoms at this time Last Assessment & Plan: Follow up as directed by your primary care provider or specialist Moderate episode of recurrent major depressive d isorder 07/19/2015 Overview (12/28/2021): Last Assessment & Plan: Condition: improving Last [...] including calling Suicide Hotline ( ) or 261. Follow up in as directed with Psychologist, Counselor and PCP Last Assessment & Plan: Condition: improving Last [...] as directed with Psychologist, Counselor and PCP Family History Medical History Relation Name Comments Asthma Father COPD - Chronic Obstructive Pulmonary Disease Mother Cancer - Lung Mother Diabetes - Type 2 Mother Hypertension Mother Relation Name Status Comments Father Alive Mother Social History Tobacco Use Types Packs/Day Years Used Date Smoking Tobacco: Former Cigarettes - 2002 Smokeless Tobacco: Never Alcohol Use Standard Drinks/Week Comments No 0 (1 standard drink = 0.6 oz pur e alcohol) Comments No Sex and Gender Information Value Date Recorded Sex Assigned at Female 02/01/2022 8:42 AM CDT Legal Sex Female 4:31 AM SHORT ORDER COOK Gender Identity Female 02/01/2022 8:42 AM CDT Sexual Orientation Straight 02/01/2022 8: 42 AM CDT Last Filed Vital Signs Vital Sign Reading Time Taken Comments Blood Pressure 141/86 03/07/2020 10:49 AM CDT Pulse 70 03/07/2020 10:49 AM CDT Temperature 36.2 C (97.1 F) 03/07/2020 10:49 AM CDT Respiratory Rate 16 09/30/2019 2:49 PM SHORT ORDER COOK Oxygen Saturation 97% 03/07/2020 10:49 AM CDT Inhaled Oxygen Concentration 21% 03/29/2019 9:20 AM CDT Weight 66.4 kg (146 lb 6.4 oz) 03/07/2020 10:49 AM CDT Height 157.5 cm (5' 2) 03/07/2020 10:49 AM CDT Body Mass Index 26.78 03/07/2020 10:49 AM CDT Plan of Treatment Health Maintenance Due Date Last Done Comments BONE DENSITY TESTING 1959 COLOGUARD (AGES 45-75) - COL ON CA SCREENING 1959 COLON MONITORING 1959 COLONOSCOPY - COLON CA SCREENING 1959 CT COLONOGRAPHY - COLON CA SCREENING 1959 Colorectal Cancer Screening 1959 FIT - COLON CA SCREENING 1959 FLEX SIG - COLON CA SCREENING 1959 MEDICARE AWV 12 MONTHS 1959 HIV SCREENING 1974 HEPATITIS C SCREENING 04/28/1977 DTAP/TDAP/TD VACCINES (1 - Tdap) 1978 PNEUMOCOCCAL VACCINE 50+ (1 of 1 - PCV) 2009 ZOSTER VACCINE (1 of 2) 2009 LIPID TESTING 05/18/2023 05/18/2018 MAMMOGRAM 04/25/2024 04/25/2022 COVID-19 VACCINE ( - 2023-2 5 season) 2024 DEPRESSION SCREENING 09/08/2024 INFLUENZA VACCINE (Season Ended) 2025 07/02/2017, 08/07/2015, 05/25/2013 Respiratory Syncytial Virus (RSV) Vaccine Pt: or over 60 yrs (1 - 1-dose 75+ series) 2034 HEPATITIS B VACCINE Aged Out No longe r eligible based on patient's age to complete this topic HIB VACCINE Aged Out No longer eligi ble based on patient's age to complete this topic HPV VACCINE Aged Out No longer eligi ble based on patient's age to complete this topic MENINGOCOCCAL (Group B) VACCINE SHARED DECISION-MAKING Aged Out No longer eligible based on patient's age to complete this topic MENINGOCOCCAL GROUPS A/C/Y/W VACCINE Aged Out No longer eligible b ased on patient's age to complete this topic Medical Devices Implanted Type Area Medical Accountant Device Identifier Shelf Expiration Date Model / Serial / Lot Set Impl Internalbrace Hand Wrst Kt Implanted:Qty: 1 on 11/23/2018 by Rafa Rodriguez MD at [facility] [employer] 09/07/2023 AR-8978-CP / / [id number] Suture [place], Mini Corkscrew Ft Implanted:Qty: 1 on 11/23/2018 by Rafa Rodriguze MD at [facility] Right: Hand [employer] 11/05/2022 AR-1319FT / / [id number] Set Impl Internalbrace Hand Wrst Kt Implanted:Qty: 1 on 09/30/2019 by Rafa Rodriguez MD at [facility] Right: Thumb [employer] 08/07/2024 AR-8978-CP / / [id number] Insurance [facility] Care Teams Maintenance Service Dispatcher Relationship Specialty Start Date End Date Charles Evans MD PCP - General Family Medicine 07/28/18
--- OUTSIDE RECORDS SUMMARY | 2025-02-04 15:22 | XMS_ITS | Encounter Summary ---
Author Organization [facility] Address [facility] [facility] [place] [address] Care Team Providers Care E Commerce Strategist Name Role Phone Charles Evans MD Primary Care Provider [phone] Encounter Details Date Type Department Care Team (Late st Contact Info) Description 11/11/2018 Telephone [facility] [address] [place] [address] Rafa Rodriguez MD [address] OF PLASTIC SURGERY [place], [place] [id number] Social History Tobacco Use Types Packs/Day Years Used Date Smoking Tobacco: Former Cigarettes 1 - 2002 Smokeless Tobacco: Never Alcohol Use Standard Drinks/Week Comments No 0 (1 standard drink = 0.6 oz pur e alcohol) Comments No Sex and Gender Information Value Date Recorded Sex Assigned at Female 02/01/2022 8:42 AM CDT Legal 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 Y MARKET CLERK documented in this encounter Plan of Treatment Not on file documented as of this encounter Visit Diagnoses Not on filedocumented in this encounter Care Teams E Commerce Strategist Relationship Specialty Start Date End Date Charles Evans MD PCP - General Family Medicine 07/28/18 documented as of this encounter
[2025-02-04 15:26] VITALS: BP 178/85; PULSE 73; RESP 16; TEMP 36.6; O2SAT 100
--- NOTE | 2025-02-04 17:00 | ED.SKABFB ---
HPI - Skin/Abscess/Foreign Bdy General Chief complaint: Skin/Abscess/Foreign Body Stated complaint: Mouth Sore Time Seen by Provider: 02/04/25 15:40 Source: patient and RN notes reviewed Mode of arrival: ambulatory Limitations: no limitations History of Present Illness HPI narrative: 64-year-old female presents Express Care complaining of redness and pain to her left upper gum for 1 week. Patient also reports tactile fevers and pressure in her left maxillary sinus. Patient reports having complete dentures reports having redness and irritation to the left upper gum line. She says she has had dentures for 2 years reports appropriate dental hygiene. Patient denies any swelling,, discharge, upper respiratory symptoms or other any other complaints. Patient is using Tylenol and Oragel without relief. Patient has not been wear dentures is weak. Related Data Home Medications ?Medication ?Instructions ?Recorded ?Confirmed ?Last Taken ?Type alendronate 70 mg tablet mg PO 02/04/25 Unknown History bupropion HCl 300 mg 24 hr tablet, mg PO 02/04/25 Unknown History extended release citalopram 40 mg tablet mg 02/04/25 Unknown History sumatriptan succinate 100 mg tablet mg PO 02/04/25 Unknown History valacyclovir 1 gram tablet mg 02/04/25 Unknown History Allergies Allergy/AdvReac Type Severity Reaction Status Date / Time neomycin Allergy Unknown RASH Verified 02/04/25 15:33 tea tree oil Allergy Intermediate Unknown Uncoded 02/04/25 15:33 Review of Systems Review of Systems: CONSTITUTIONAL: Denies fever, chills, or sweats. EYES: Denies visual changes, redness, or discharge. ENT: Denies rhinorrhea, congestion, sore throat, or otalgia. CARDIOVASCULAR: Denies chest pain, palpitations, or edema. MOUTH: Positive for gum soreness and swelling. RESPIRATORY: Denies cough or dyspnea. GASTROINTESTINAL: Denies abdominal pain, nausea, vomiting, or diarrhea. GENITOURINARY: Denies dysuria or hematuria. SKIN: Denies rash or itching. MUSCULOSKELETAL: Denies back pain, joint pain, or myalgia. NEUROLOGIC: Denies headache, numbness, or weakness. PSYCHIATRIC: Denies anxiety or depression. All other systems reviewed are negative, except as documented in HPI. PMFSH Comments At the time of my signature, I reviewed and agree with the nursing past medical, surgical, social, and family history. There is no relevant family history pertinent to the patient complaint. Exam Narrative: GENERAL: This is a well-nourished, well-developed adult, in no apparent distress. They are non ill-appearing, nontoxic appearing. HEAD: normocephalic, atraumatic. EYES: Sclera clear/white. Conjunctiva normal. Vision is grossly intact. Extraocular movements intact EARS: External ears normal, Hearing grossly intact. NOSE: External nose normal THROAT: Mucous membranes moist, posterior pharynx clear, without erythema or swelling. Uvula midline. OROPHARYNX: Missing teeth to the upper mouth. Gross tooth decay to the lower mouth. Missing teeth present. Area of erythema and swelling to the left upper gum where the 1st-3rd molars would be present. No induration area of fluctuance. No swelling or tenderness to the hard palate. Tongue is normal. No swelling or tenderness under the tongue. NECK: Neck supple CARDIOVASCULAR: Regular rate and rhythm RESPIRATORY: Respiratory rate normal, respiratory effort nonlabored, no respiratory distress SKIN: warm, Dry, intact with no suspicious lesions or rash, good texture and turgor. NEURO: awake, alert, and oriented to person, place and time. There were no obvious focal neurologic abnormalities. EXTREMITIES: No joint tenderness, effusion, or edema noted. BACK: Nontender without deformity. Course Course Emergency Course: Portions of this record may have been created with voice recognition software Level of Care: Express Care Visit Vital Signs Vital signs: Vital Signs Temperature 98 F 02/04/25 15:26 Pulse Rate 73 02/04/25 15:26 Respiratory Rate 16 02/04/25 15:26 Blood Pressure 178/85 H 02/04/25 15:26 Pulse Oximetry 100 02/04/25 15:26 Oxygen Delivery Room Air 02/04/25 15:26 Temperature 98 F 02/04/25 15:26 Pulse Rate 73 02/04/25 15:26 Respiratory Rate 16 02/04/25 15:26 Blood Pressure 178/85 H 02/04/25 15:26 Pulse Oximetry 100 02/04/25 15:26 Oxygen Delivery Room Air 02/04/25 15:26 Reviewed MDM - Skin/Abscess/Foreign Bdy MDM Narrative Medical decision making narrative: Possible patient may be developing a dental infection will go ahead and treat empirically with Augmentin. May also be contact stomatitis from the denture use, however she states she has not used them this week. Will prescribe viscous lidocaine as needed for pain. Advised follow-up with dentist. Discussed physical exam findings. Advised supportive measures and signs/symptoms to go to the ER. Pt is appropriate for outpt treatment and f/u. Differential Diagnosis Differential diagnosis: Likely other (Dental abscess, gingivitis, contact stomatitis) Critical Care Time Critical Care Time Critical Care Time: No Discharge Plan Discharge Clinical Impression: Blister of gum with infection Patient Disposition: Home Condition: Stable Instructions: Antibiotic Form, Dental Abscess (ED) Additional Instructions: Take the antibiotics as directed. You May use viscous lidocaine as directed for pain relief. Apply directly to the area with a Q-tip. You may alternate Tylenol and ibuprofen as needed for pain. Perform oral hygiene at least twice a day followed by mouthwash. Follow-up with dentist next week. If you developed worsening swelling, fevers, difficulty swallowing or breathing, difficulty opening her jaw, swelling under the tongue, or any other concerns please go to the ER immediately. Patient Language: Slovenian Prescriptions: New lidocaine HCl [Lidocaine Viscous] 2 % solution 1 applic mucous membrane TID PRN (Reason: pain) Qty: 1 0RF amoxicillin-pot clavulanate 875-125 mg tablet 1 tablet PO Q12H 7 Days Qty: 14 0RF No Action citalopram 40 mg tablet valacyclovir 1 gram tablet sumatriptan succinate 100 mg tablet PO alendronate 70 mg tablet PO bupropion HCl 300 mg tablet extended release 24 hr PO Follow-up/Referrals: Emily,MD Florentin [Primary Care Provider] - Time of Disposition: 15:47
== END 2025-02-04 15:52 | disposition home or self-care (01) ==
PROVIDERS: PCP Hospitalist
DX: S00.522A Blister (nonthermal) of oral cavity, initial encounter (principal); X58.XXXA Exposure to other specified factors, initial encounter
CPT/HCPCS: 99203; G0463